=== PATIENT | male | born 1995 | race Caucasian/White ===

== ENCOUNTER 2021-01-10 13:03 | Outpatient (REF) | payer OTHER, SELFPAY ==
[2021-01-10 13:22] LABS: COVID-19 Test Negative (Negative)
== END 2021-01-10 13:04 | disposition home or self-care (01) ==
LOC: HO.LAB 13:03
PROVIDERS: Visit Provider Internal Medicine
DX: Z20.822 Contact with and (suspected) exposure to COVID-19 (principal)
CPT/HCPCS: 36415; 87635; C9803

== ENCOUNTER 2021-01-11 06:00 | Emergency (ER) | payer OTHER, SELFPAY ==
[2021-01-11] VITALS (9 sets, daily range): BP systolic 112–134; BP diastolic 66–80; PULSE 74–145; RESP 17–24; TEMP 36.8–37.2; O2SAT 93–97; BMI 25.8
--- NOTE | ~2021-01-11 | XR_ITS ---
EXAMINATION: XR CHEST CLINICAL INFORMATION: SOB/asthma. COMPARISON: Chest 12/11/2017 TECHNIQUE: Frontal view of the chest was obtained. FINDINGS: No significant abnormality is noted involving the heart, lungs, mediastinum, bony thorax or soft tissues. XR/XR chest 1V IMPRESSION: Unremarkable chest exam.
[2021-01-11] MEDS: Albuterol Sulfate (0.083%) 2.5 MG/3 ML VIAL.NEB INHALE (07:56)
[2021-01-11 08:02] LABS: MANUAL DIFF FLAG NO
[2021-01-11 08:05] LABS: Basophils Percent Auto 0.3 % (0-2); Eosinophils Absolute Auto 0.4 X10*3/uL (0.0-0.4); Hematocrit 44.8 % (42-52); Hemoglobin 15.3 g/dl (14.0-18.0); Imm Gran Abs Auto 0.03 X10*3/uL (0.00-0.03); Imm Gran Pct Auto 0.3 % (0.0-0.4); Lymphocytes Absolute Auto 1.2 X10*3/uL (1.2-4.9); Lymphocytes Percent Auto 12.7 % (20-40); Mean Corpuscular HGB Conc 34.2 g/dl (31.0-36.0); Mean Corpuscular Hemoglobin 30.4 pg (27.0-33.0); Mean Corpuscular Volume 89.1 fL (80-98); Mean Platelet Volume 10.1 fL (9.4-12.4); Monocytes Absolute Auto 0.7 X10*3/uL (0.1-1.2); Monocytes Percent Auto 7.6 % (2-11); Neutrophils Absolute Auto 6.8 X10*3/uL (2.0-8.3); Neutrophils Percent Auto 75.1 % (45-73); Platelet Count 254 X10*3/uL (160-400); Red Blood Count 5.03 X10*6/uL (4.60-5.80); Red Cell Distribution Width 11.6 % (11.0-16.0); White Blood Count 9.1 X10*3/uL (4.8-10.8)
--- NOTE | 2021-01-11 08:11 | ECG_ITS ---
Test Reason : ASTHMA Blood Pressure : / mmHG Vent. Rate : 117 BPM Atrial Rate : 117 BPM P-R Int : 158 ms QRS Dur : 092 ms QT Int : 306 ms P-R-T Axes : 072 083 047 degrees QTc Int : 426 ms Sinus tachycardia Otherwise normal ECG No previous ECGs available Referred By: Catia Nesbitt Electronically Signed By:EDUARDO PAGE
[2021-01-11] MEDS: Magnesium Sulfate/H2O 2 GM/50 ML PIGGYBACK IV (08:20)
[2021-01-11] MEDS: methylPREDNISolone Sod Succ 125 MG/2 ML VIAL IVPUSH (08:21)
[2021-01-11 08:30] LABS: Anion Gap 13 (12-20); Blood Urea Nitrogen 7 mg/dL (9-16); Calcium 9.4 mg/dL (8.4-10.2); Carbon Dioxide 26 mmol/L (22-29); Chloride 104 mmol/L (96-108); Creatinine Clr Calc Pharmacy 137.7; Estimated Glomerular Filt Rate > 60; Glucose Random 114 mg/dL (60-115); Potassium 3.9 mmol/L (3.3-5.1); Sodium 139 mmol/L (135-145)
[2021-01-11 09:21] LABS: Troponin-I High Sensitivity < 3.5 ng/L (<3.5-35.0)
--- NOTE | 2021-01-11 09:38 | ED_ITS ---
HPI - Asthma General Chief Complaint: Asthma Stated Complaint: Asthma Time Seen by Provider: 01/11/21 08:06 Source: patient Mode of arrival: ambulatory History of Present Illness HPI Narrative: 25-year-old male with past medical history of asthma presenting to the ED complaining of asthma exacerbation since last night unrelieved with home nebulizer. Reports a dry cough, SOB, and chest tightness. Denies fever, chills, abdominal pain, nausea/vomiting, LE edema, calf pain, cigarette smoking MD complaint: asthma attack and shortness of breath Related Data Previous Rx's Medication Instructions Recorded albuterol sulfate 90 mcg/actuation 2 puff INHALATION Q6H PRN 30 Days 08/09/20 aerosol inhaler #8.5 g loratadine 5 mg chewable tablet 5 mg PO DAILY PRN 30 Days #30 tab 08/09/20 albuterol sulfate 5 mg INHALATION Q4H PRN #30 ea 01/11/21 prednisone 40 mg PO DAILY 5 Days #10 tab 01/11/21 Allergies Allergy/AdvReac Type Severity Reaction Status Date / Time amoxicillin [AMOXICILLIN] Allergy Unknown HIVES Verified 08/02/20 14:07 Review of Systems Review of Systems: Constitutional: No Fever, No Chills, No Fatigue, No Malaise Cardiovascular: + Chest tightness, + SOB, No Orthopnea, No Edema Respiratory: + Cough, No Sputum, + Wheezing, No Smoke Exposure Gastrointestinal: No Nausea, No Vomiting, No Diarrhea, No Constipation, No Abdominal pain Musculoskeletal: No joint pain, No Myalgias, No Joint Swelling Skin: No Skin Lesions, No rash Neuro: No Weakness, No Numbness Yes all other systems are reviewed and are negative [facility] Past Medical History Attestation statement: The following information was validated with the patient. Medical History (Updated 01/11/21 @ 13:23 by TRAM Srivastava) Asthma Surgical History (Updated 08/02/20 @ 14:07 by TERRIE Garcia) History of appendectomy Family History Family History (Updated 08/02/20 @ 14:08 by TERRIE Garcia) Father No problems noted. Mother No problems noted. Social History Social History Smoked in Last 30 Days: No Use of substances other than those prescribed or required for medical reasons: No Advance Directives: Yes Advance Directives Information Provided: Yes Advance Directives on File: No Physical Exam Vital Signs: Vital Signs: Last Vital Signs Temp 98.7 F 01/11/21 11:31 Pulse 126 H 01/11/21 11:57 Resp 18 01/11/21 11:31 BP 112/68 01/11/21 11:31 Pulse Ox 93 01/11/21 11:31 Body Mass Index 25.8 Const: General: cooperative and healthy appearing Orientation/consciousness: patient oriented x3 Limitations: no limitations HENMT: Head: Yes normal to inspection Ears: hearing grossly normal bilaterally General nose exam: Normal external nose present Face and sinus: Yes normal facial exam Eyes: General: appearance normal, both eyes and all related structures EOM: EOMs intact bilaterally Neck: Neck: Yes normal visual inspection Resp: Effort & Inspection: normal respiratory effort Auscultation: wheezes expiratory wheezes, inspiratory wheezes and throughout Cardio: Rate: regular rate Heart sounds: S1 normal heart sound present and S2 normal heart sound present GI: Inspection: Yes normal to inspection Palpation (GI): Soft to palpation, nontender and Guarding due to palpation present (GI) Skin: Rashes: no rashes Wounds: no wounds Neuro: General: patient oriented x3 Gait exam (Neuro): Normal gait present Extrem: General: Yes normal to inspection, Yes no pedal edema and Yes no calf tenderness Course Course Course Narrative: XR chest 1V IMPRESSION: Unremarkable chest exam. -troponin negative -1005--no leukocytosis. On re-evaluation after 2nd DuoNeb better air movement, however still diffuse expiratory wheezing. Will give short break, give hour long treatment and reassess -labs otherwise unremarkable -1322--on re-evaluation after our long albuterol treatment patient with clear lungs. Reports symptomatic improvement. Worrisome signs and symptoms and strict return precautions discussed. He verbalized understanding feel safe for discharge home to follow-up with PCP MDM - Asthma MDM Narrative Medical decision making narrative: 25-year-old male with past medical history of asthma presenting to the ED complaining of asthma exacerbation since last night unrelieved with home nebulizer. Reports a dry cough, SOB, and chest tightness. On exam initially tachypneic, heart rate 100, diffuse inspiratory/expiratory wheezing, nontoxic appearing. Concern for asthma exacerbation. Rule out pneumonia. Lower concern for PE/ACS. Tested negative for COVID-19 yesterday. Pain: EKG, labs, CXR, Solu-Medrol, magnesium, DuoNeb, re-evaluate Differential Diagnosis Differential diagnosis: Likely Acute exacerbation Medical Records Attestation: I reviewed the patient's medical records. Lab Data Attestation: I reviewed the patient's lab results. Result diagrams: 01/11/21 07:57 01/11/21 07:57 Labs: Lab Results 01/11/21 01/11/21 01/11/21 Range/Units 07:57 07:57 07:57 WBC 9.1 (4.8-10.8) X10*3/uL RBC 5.03 (4.60-5.80) X10*6/uL Hgb 15.3 (14.0-18.0) g/dl Hct 44.8 (42-52) % MCV 89.1 (80-98) fL MCH 30.4 (27.0-33.0) pg MCHC 34.2 (31.0-36.0) g/dl RDW 11.6 (11.0-16.0) % Plt Count 254 (160-400) X10*3/uL MPV 10.1 (9.4-12.4) fL Immature Gran % (Auto) 0.3 (0.0-0.4) % Neut % (Auto) 75.1 H (45-73) % Lymph % (Auto) 12.7 L (20-40) % Mcculloch % (Auto) 7.6 (2-11) % Eos % (Auto) 4.0 (0-4) % Baso % (Auto) 0.3 (0-2) % Lymph # (Auto) 1.2 (1.2-4.9) X10*3/uL Mcculloch # (Auto) 0.7 (0.1-1.2) X10*3/uL Eos # (Auto) 0.4 (0.0-0.4) X10*3/uL Baso # (Auto) 0.0 (0.0-0.2) X10*3/uL Abs Immat Gran (auto) 0.03 (0.00-0.03) X10*3/uL Absolute Neuts (auto) 6.8 (2.0-8.3) X10*3/uL Absolute Nucleated RBC 0.000 (0.0-0.012) X10*3/uL Nucleated RBC % (auto) 0.0 (0.0-0.2) /100WBC Hold Purple Top SEE NOTE Hold Blue Top SEE NOTE Sodium (135-145) mmol/L Potassium (3.3-5.1) mmol/L Chloride (96-108) mmol/L Carbon Dioxide (22-29) mmol/L Anion Gap (12-20) BUN (9-16) mg/dL Creatinine (0.5-1.4) mg/dL Estim Creat Clear Calc Estimated GFR Random Glucose (60-115) mg/dL Calcium (8.4-10.2) mg/dL Troponin I High Sens (<3.5-35.0) ng/L 01/11/21 01/11/21 Range/Units 07:57 07:57 WBC (4.8-10.8) X10*3/uL RBC (4.60-5.80) X10*6/uL Hgb (14.0-18.0) g/dl Hct (42-52) % MCV (80-98) fL MCH (27.0-33.0) pg MCHC (31.0-36.0) g/dl RDW (11.0-16.0) % Plt Count (160-400) X10*3/uL MPV (9.4-12.4) fL Immature Gran % (Auto) (0.0-0.4) % Neut % (Auto) (45-73) % Lymph % (Auto) (20-40) % Mcculloch % (Auto) (2-11) % Eos % (Auto) (0-4) % Baso % (Auto) (0-2) % Lymph # (Auto) (1.2-4.9) X10*3/uL Mcculloch # (Auto) (0.1-1.2) X10*3/uL Eos # (Auto) (0.0-0.4) X10*3/uL Baso # (Auto) (0.0-0.2) X10*3/uL Abs Immat Gran (auto) (0.00-0.03) X10*3/uL Absolute Neuts (auto) (2.0-8.3) X10*3/uL Absolute Nucleated RBC (0.0-0.012) X10*3/uL Nucleated RBC % (auto) (0.0-0.2) /100WBC Hold Purple Top Hold Blue Top Sodium 139 (135-145) mmol/L Potassium 3.9 (3.3-5.1) mmol/L Chloride 104 (96-108) mmol/L Carbon Dioxide 26 (22-29) mmol/L Anion Gap 13 (12-20) BUN 7 L (9-16) mg/dL Creatinine 0.80 (0.5-1.4) mg/dL Estim Creat Clear Calc 137.7 Estimated GFR > 60 Random Glucose 114 (60-115) mg/dL Calcium 9.4 (8.4-10.2) mg/dL Troponin I High Sens < 3.5 (<3.5-35.0) ng/L Discharge Plan Discharge Clinical Impression: Asthma with acute exacerbation Patient Disposition: Home, Self-Care Instructions: Asthma (ED) Additional Instructions: Your blood work and chest x-ray were reassuring today in the ED You are having an asthma exacerbation, you need to use her nebulizer machine at home, refills of the solution were sent to the pharmacy You also need to use your inhalers, in addition take prednisone as prescribed If you develop constant worsening shortness of breath, chest pain, fever, or symptoms persist or worsen return to the ED Follow-up with your doctor Prescriptions: New prednisone 20 mg tablet 40 mg PO DAILY 5 Days Qty: 10 RF: 0 albuterol sulfate 2.5 mg/0.5 mL solution for nebulization 5 mg inhalation Q4H PRN (Reason: shortness of breath or wheezing) Qty: 30 RF: 0 No Action loratadine 5 mg tablet,chewable 5 mg PO DAILY PRN (Reason: Allergy) 30 Days Qty: 30 RF: 0 albuterol sulfate 90 mcg/actuation HFA aerosol inhaler 2 puff inhalation Q6H PRN (Reason: shortness of breath or wheezing) 30 Days Qty: 8.5 RF: 0 Referrals: Physician,Unknown [Primary Care Provider] - 2 days
--- NOTE | 2021-01-11 11:30 | PC.NURSE ---
unlabored. ls slight coarse wheeze. good air movement. skin pwd. st on monitr
[2021-01-11] MEDS: Albuterol Sulfate (0.083%) 2.5 MG/3 ML VIAL.NEB 10 MG INHALE (11:54)
--- NOTE | 2021-01-11 13:50 | PC.NURSE ---
not quite ready for d/c. ambulates without increased work of breathing. sao2 maintains above 95% but pulse is in 140-150's while ambulating. down to 130's at rest. provider aware and will watch patient for a little longer.
== END 2021-01-11 14:27 | disposition home or self-care (01) ==
PROVIDERS: Physician Assistant; Emergency Provider Emergency Medicine Emergency Medical Services
DX: J45.901 Unspecified asthma with (acute) exacerbation (principal); Z79.899 Other long term (current) drug therapy
CPT/HCPCS: 36415; 71045; 80048; 84484; 85025; 93005; 94640; 94645; 96365; 96366; 96375; 99284; 99285; J2930; J3475

== ENCOUNTER 2021-06-21 18:08 | Emergency (ER) | payer OTHER, SELFPAY ==
--- NOTE | 2021-06-21 | ECG_ITS ---
Test Reason : CHEST PAIN Blood Pressure : / mmHG Vent. Rate : 084 BPM Atrial Rate : 084 BPM P-R Int : 152 ms QRS Dur : 088 ms QT Int : 336 ms P-R-T Axes : 061 064 065 degrees QTc Int : 397 ms Normal sinus rhythm with sinus arrhythmia Normal ECG When compared with ECG of 11-JAN-2021 08:51, No significant change was found Referred By: Generic ED Physician Electronically Signed By:JOANA NINO
--- NOTE | ~2021-06-21 | XR_ITS ---
EXAMINATION: XR CHEST CLINICAL INFORMATION: Chest pain COMPARISON: 01/11/2021 TECHNIQUE: Frontal view of the chest was obtained. FINDINGS: No significant abnormality is noted involving the heart, lungs, mediastinum, bony thorax or soft tissues. XR/XR chest 1V IMPRESSION: Unremarkable examination.
[2021-06-21 18:38] VITALS: BP 115/60; PULSE 88; RESP 16; TEMP 36.9; O2SAT 98; BMI 23.6
[2021-06-21 21:05] LABS: MANUAL DIFF FLAG NO
[2021-06-21 21:09] LABS: Basophils Percent Auto 0.3 % (0-2); Eosinophils Absolute Auto 0.1 X10*3/uL (0.0-0.4); Eosinophils Percent Auto 1.9 % (0-4); Hematocrit 42.2 % (42-52); Hemoglobin 14.9 g/dl (14.0-18.0); Imm Gran Abs Auto 0.01 X10*3/uL (0.00-0.03); Imm Gran Pct Auto 0.2 % (0.0-0.4); Lymphocytes Absolute Auto 1.4 X10*3/uL (1.2-4.9); Lymphocytes Percent Auto 24.8 % (20-40); Mean Corpuscular HGB Conc 35.3 g/dl (31.0-36.0); Mean Corpuscular Hemoglobin 31.4 pg (27.0-33.0); Mean Corpuscular Volume 88.8 fL (80-98); Mean Platelet Volume 9.8 fL (9.4-12.4); Monocytes Absolute Auto 0.6 X10*3/uL (0.1-1.2); Monocytes Percent Auto 10.2 % (2-11); Neutrophils Absolute Auto 3.6 X10*3/uL (2.0-8.3); Neutrophils Percent Auto 62.6 % (45-73); Platelet Count 233 X10*3/uL (160-400); Red Blood Count 4.75 X10*6/uL (4.60-5.80); Red Cell Distribution Width 11.7 % (11.0-16.0); White Blood Count 5.8 X10*3/uL (4.8-10.8)
[2021-06-21 21:21] LABS: Anion Gap 12 (12-20); Blood Urea Nitrogen 9 mg/dL (9-16); Calcium 9.3 mg/dL (8.4-10.2); Carbon Dioxide 27 mmol/L (22-29); Chloride 104 mmol/L (96-108); Creatinine Clr Calc Pharmacy 148.8; Estimated Glomerular Filt Rate > 60; Glucose Random 93 mg/dL (60-115); Sodium 139 mmol/L (135-145)
[2021-06-21 21:28] LABS: Troponin-I High Sensitivity < 3.5 ng/L (<3.5-35.0)
--- NOTE | 2021-06-21 22:52 | ED.CHESTPAIN ---
HPI - Chest Pain General Chief Complaint: Chest Pain Stated Complaint: cp Time Seen by Provider: 06/21/21 22:52 Source: patient and family (Mother) Mode of arrival: ambulatory Limitations: no limitations History of Present Illness HPI narrative: 25 years old male came in for evaluation of left-sided chest pain and bilateral arm pain. Patient was driving to work when he suddenly feels squeezing pain in both arms that radiates to left side of the chest, pain started as severe 7/10 then gradually start to improve, nothing relieves the pain, nothing worsening the pain, no other associated symptoms. Never had this pain in the past. Patient has no pain or symptoms now. Patient declined any history of anxiety, no history of drug abuse except smoking marijuana occasionally, no family history of heart disease at young age. No stress in his life currently. Related Data Previous Rx's Medication Instructions Recorded albuterol sulfate 90 mcg/actuation 2 puff INHALATION Q6H PRN 30 Days 08/09/20 aerosol inhaler #8.5 g loratadine 5 mg chewable tablet 5 mg PO DAILY PRN 30 Days #30 tab 08/09/20 albuterol sulfate 2.5 mg/0.5 mL 5 mg INHALATION Q4H PRN #30 ea 01/11/21 solution for nebulization prednisone 20 mg tablet 40 mg PO DAILY 5 Days #10 tab 01/11/21 azithromycin 250 mg tablet See Rx Instructions PO .COMPLEX #6 01/12/21 (Zithromax Z-Sundar) tab Allergies Allergy/AdvReac Type Severity Reaction Status Date / Time amoxicillin [AMOXICILLIN] Allergy Unknown HIVES Verified 08/02/20 14:07 Review of Systems Review of Systems: All other systems are reviewed and are negative Constitutional: Reports as per HPI and Reports no additional constitutional complaints Eyes: Reports as per HPI and Reports no additional eye complaints Reports system reviewed and no additional complaints, except as documented Cardiovascular: Reports as per HPI and Reports no additional cardiovascular complaints Respiratory: Reports as per HPI and Reports no additional respiratory complaints Gastrointestinal: Reports as per HPI and Reports no additional gastrointestinal complaints Genitourinary: Reports no additional female genitourinary complaints Musculoskeletal: Reports no additional musculoskeletal complaints Skin/Breast: Reports system reviewed and no additional complaints, except as docu Psychiatric: Reports no additional psychiatric complaints Endocrine: Reports no additional endocrine complaints Hematologic/Lymphatic: Reports no additional hematologic/lymphatic complaints Allergic/Immunologic: Reports no additional allergic/immunologic complaints Reports system reviewed and no additional complaints, except as documented and Reports Abnormal speech present [facility] Past Medical History Medical History Asthma Surgical History History of appendectomy Family History Family History Father No problems noted. Mother No problems noted. Social History Social History Alcohol intake: never Physical Exam Vital Signs: Vital Signs: Last Vital Signs Temp 98.5 F 06/21/21 18:38 Pulse 88 06/21/21 18:38 Resp 16 06/21/21 18:38 BP 115/60 06/21/21 18:38 Pulse Ox 98 06/21/21 18:38 Body Mass Index 23.6 Vital signs have been reviewed as appeared to be correct. Blood pressure normal. Heart rate normal. Respiration rate normal. Temperature normal. Oxygen saturation normal. Appearance: Alert. Oriented X3. No acute distress. Head: Normal external exam. Normocephalic. Atraumatic. No Rojas signs noted. No raccoon eyes noted Eyes: PERRLA. EOMI. Conjunctiva and sclera normal. Eyelids normal. ENT: TM's Normal. Pharynx normal. Uvula midline. Moist mucous membranes. No trismus noted. No drooling noted. No muffled voice noted. Neck: Normal inspection. Neck supple. FROM. No adenopathy. Thyroid Normal. No meningeal signs. No neck mass noted. CVS: Normal heart rate and rhythm. Heart sound normal. No murmurs noted. Pulses normal throughout. Respiratory: No respiratory distress. Painless inspiration. Breath sounds normal. No wheezes/rales/rhonchi noted. Chest nontender. No accessory muscle usage noted or decreased air movement noted. Abdomen: Soft and nontender. Bowel sounds normal in all 4 quadrants. No distention noted. No organomegaly noted. No visible injury noted. Back: No CVA tenderness. Full range of motion noted. Skin: Skin warm and dry. Normal skin color. Normal skin turgor. No rashes/lesions/lacerations noted. Extremities: No lower extremity edema. Extremities exhibit normal range of motion. Extremities nontender. Neuro: Oriented X 3. Cranial nerve exam: II-XII are grossly intact No motor deficit. No sensory deficit. Reflexes normal. Course Course Course Narrative: Assessment and plan. 25-year-old male came in after having squeezing pain in both arms radiating to the left side of the chest., patient has unremarkable EKG/cardiac enzymes are unremarkable, patient now feels asymptomatic. Will discharge to follow-up with PCP. MDM - Chest Pain Lab Data Attestation: I reviewed the patient's lab results. Result diagrams: 06/21/21 20:59 06/21/21 20:59 Labs: Lab Results 06/21/21 06/21/21 06/21/21 Range/Units 20:59 20:59 20:59 WBC 5.8 (4.8-10.8) X10*3/uL RBC 4.75 (4.60-5.80) X10*6/uL Hgb 14.9 (14.0-18.0) g/dl Hct 42.2 (42-52) % MCV 88.8 (80-98) fL MCH 31.4 (27.0-33.0) pg MCHC 35.3 (31.0-36.0) g/dl RDW 11.7 (11.0-16.0) % Plt Count 233 (160-400) X10*3/uL MPV 9.8 (9.4-12.4) fL Immature Gran % (Auto) 0.2 (0.0-0.4) % Neut % (Auto) 62.6 (45-73) % Lymph % (Auto) 24.8 (20-40) % Porter % (Auto) 10.2 (2-11) % Eos % (Auto) 1.9 (0-4) % Baso % (Auto) 0.3 (0-2) % Lymph # (Auto) 1.4 (1.2-4.9) X10*3/uL Porter # (Auto) 0.6 (0.1-1.2) X10*3/uL Eos # (Auto) 0.1 (0.0-0.4) X10*3/uL Baso # (Auto) 0.0 (0.0-0.2) X10*3/uL Abs Immat Gran (auto) 0.01 (0.00-0.03) X10*3/uL Absolute Neuts (auto) 3.6 (2.0-8.3) X10*3/uL Absolute Nucleated RBC 0.000 (0.0-0.012) X10*3/uL Nucleated RBC % (auto) 0.0 (0.0-0.2) /100WBC Sodium 139 (135-145) mmol/L Potassium 4.0 (3.3-5.1) mmol/L Chloride 104 (96-108) mmol/L Carbon Dioxide 27 (22-29) mmol/L Anion Gap 12 (12-20) BUN 9 (9-16) mg/dL Creatinine 0.79 (0.5-1.4) mg/dL Estim Creat Clear Calc 148.8 Estimated GFR > 60 Random Glucose 93 (60-115) mg/dL Calcium 9.3 (8.4-10.2) mg/dL Troponin I High Sens < 3.5 (<3.5-35.0) ng/L Imaging Data Chest x-ray: Radiologist's impression: Unremarkable examination ECG Data ECG #1: Interpretation: Normal sinus rhythm with sinus arrhythmia, normal axis deviation, normal intervals, no ST-T changes. Discharge Plan Discharge Clinical Impression: Anxiety, Chest pain, non-cardiac Patient Disposition: Home, Self-Care Instructions: Chest Pain (ED) Prescriptions: No Action prednisone 20 mg tablet 40 mg PO DAILY 5 Days Qty: 10 RF: 0 albuterol sulfate 2.5 mg/0.5 mL solution for nebulization 5 mg inhalation Q4H PRN (Reason: shortness of breath or wheezing) Qty: 30 RF: 0 loratadine 5 mg tablet,chewable 5 mg PO DAILY PRN (Reason: Allergy) 30 Days Qty: 30 RF: 0 albuterol sulfate 90 mcg/actuation HFA aerosol inhaler 2 puff inhalation Q6H PRN (Reason: shortness of breath or wheezing) 30 Days Qty: 8.5 RF: 0 azithromycin [Zithromax Z-Sundar] 250 mg tablet See Rx Instructions PO .COMPLEX Qty: 6 RF: 0 Referrals: Po,Eben Gonzales MD [Primary Care Provider] - 2 days Stand Alone Forms: Work/School Release
== END 2021-06-21 23:08 | disposition home or self-care (01) ==
PROVIDERS: Emergency Provider Emergency Medicine; PCP Internal Medicine
DX: R07.89 Other chest pain (principal); F41.1 Generalized anxiety disorder; M79.602 Pain in left arm; M79.601 Pain in right arm; Z79.899 Other long term (current) drug therapy
CPT/HCPCS: 36415; 71045; 80048; 84484; 85025; 93005; 99283

== ENCOUNTER 2021-10-04 10:02 | Outpatient (REF) | payer OTHER, SELFPAY | END 2021-10-04 10:03 | disposition home or self-care (01) | LOC: HO.HMGCLDS 10:02 | PROVIDERS: Visit Provider Internal Medicine | DX: Z20.822 Contact with and (suspected) exposure to COVID-19 (principal) | CPT/HCPCS: U0003; U0005 ==

== ENCOUNTER 2022-09-10 11:02 | Emergency (ER) | payer SELFPAY ==
--- NOTE | ~2022-09-10 | CT_ITS ---
EXAMINATION: CT HEAD WITHOUT CONTRAST CLINICAL INFORMATION: Headache COMPARISON: Head CT May 25, 2018 TECHNIQUE: Contiguous axial imaging was performed from the skull base to vertex without intravenous administration of contrast. This CT examination was performed using dose optimization techniques as appropriate, variously including the following: *Automated exposure control *Adjustment of mA and/or kV according to patient size (this includes techniques or standardized protocols for targeted exams where dose is matched to indication/reason for exam; i.e. extremities or head) *Use of iterative reconstruction technique DLP: 695 mGy-cm FINDINGS: There is no evidence of acute intracranial hemorrhage or territorial infarction. No abnormal mass effect or midline shift is appreciated. Russ-white differentiation is well preserved. No extra-axial fluid collections. The ventricular system and cortical sulci are normal in size. The osseous structures and soft tissues are normal. The visualized paranasal sinuses and mastoid air cells are well aerated. CT/CT head/brain wo IV con IMPRESSION: No acute intracranial pathology.
[2022-09-10 11:05] VITALS: BP 136/58; PULSE 110; RESP 18; TEMP 37.1; O2SAT 100; BMI 25.8
--- NOTE | 2022-09-10 11:05 | ED.HA ---
HPI - Headache General Chief Complaint: General Medical <Tea Ivory NP - Last Filed: 09/10/22 11:09> Stated Complaint: Migraine <Tea Ivory NP - Last Filed: 09/10/22 11:09> Time Seen by Provider: 09/10/22 11:29 <Tea Ivory NP - Last Filed: 09/10/22 11:09> Source: patient <Sadie Penaloza DO - Last Filed: 09/10/22 15:36> Mode of arrival: ambulatory <Sadie Penaloza DO - Last Filed: 09/10/22 15:36> Limitations: no limitations <Sadie Penaloza DO - Last Filed: 09/10/22 15:36> History of Present Illness HPI Narrative: 27 yo male with no sig PMH here with c/o body aches, weakness, fevers, headaches - he was exposed to his kids who just got over the flu. He took motrin at 3am which didn't help. <Sadie Penaloza DO - Last Filed: 09/10/22 15:36> MD elicited complaint: headache <Sadie Penaloza DO - Last Filed: 09/10/22 15:36> Onset (ago): day(s) (started on Saturday) <Sadie Penaloza DO - Last Filed: 09/10/22 15:36> Onset description: gradually <Sadie Penaloza DO - Last Filed: 09/10/22 15:36> Location: diffuse <Sadie Penaloza DO - Last Filed: 09/10/22 15:36> Severity: moderate <Sadie Penaloza DO - Last Filed: 09/10/22 15:36> Quality & Timing: throbbing <Sadie Penaloza DO - Last Filed: 09/10/22 15:36> Exacerbating factors: movement of head/neck and light <Sadie Penaloza DO - Last Filed: 09/10/22 15:36> Relieving factors: rest <Sadie Penaloza DO - Last Filed: 09/10/22 15:36> Context: recent URI <Sadie Penaloza DO - Last Filed: 09/10/22 15:36> Associated symptoms: fever and other (body aches, doens't feel well) <Sadie Penaloza DO - Last Filed: 09/10/22 15:36> Treatments prior to arrival: none <Sadie Penaloza DO - Last Filed: 09/10/22 15:36> Related Data Home Medications: Previous Rx's Medication Instructions Recorded albuterol sulfate 90 mcg/actuation 2 puff inhalation Q6H PRN 08/09/20 aerosol inhaler shortness of breath or wheezing 1 month #8.5 grams loratadine 5 mg chewable tablet 5 mg PO DAILY PRN Allergy 30 days 08/09/20 #30 tabs albuterol sulfate 2.5 mg/0.5 mL 5 mg inhalation Q4H PRN shortness 01/11/21 solution for nebulization of breath or wheezing #30 ea prednisone 20 mg tablet 40 mg PO DAILY 5 days #10 tabs 01/11/21 azithromycin 250 mg tablet See Rx Instructions PO .COMPLEX #6 01/12/21 (Zithromax Z-Sundar) tabs acetaminophen 500 mg tablet 500 mg PO Q4H PRN fever or pain 09/10/22 (Tylenol Extra Strength) #30 tabs ibuprofen 600 mg tablet 600 mg PO Q6H PRN pain #30 tabs 09/10/22 ondansetron 4 mg disintegrating 4 mg PO Q8H PRN nausea and 09/10/22 tablet vomiting #20 tabs <Tea Ivory NP - Last Filed: 09/10/22 11:09> Allergies/Adverse Reactions: Allergies Allergy/AdvReac Type Severity Reaction Status Date / Time amoxicillin [AMOXICILLIN] Allergy Unknown HIVES Verified 09/10/22 11:05 <Tea Ivory NP - Last Filed: 09/10/22 11:09> Review of Systems Review of Systems: Constitutional : pos Fever, pos Chills, No Fatigue ENT/Mouth : No sore throat, No Rhinorrhea Eyes: No Eye Pain, No Swelling, No Redness Cardiovascular : No Chest Pain, No SOB, No Dyspnea on Exertion Respiratory : No Cough, No Sputum Gastrointestinal : No Nausea, No Vomiting, No Diarrhea, No abdominal Pain Genitourinary : No Dysuria, No Urinary Frequency, No Hematuria, Musculoskeletal : No joint pain, No Myalgias, No Joint Swelling Skin : No Skin Lesions, No rash Neuro : No Weakness, No Numbness, No Dizziness, positive Headache Psych : No Anxiety/Panic, No Depression Heme/Lymph: No Bruising, No Bleeding,No Lymphadenopathy Endocrine : No Polyuria, No Polydipsia All other systems reviewed and are negative <Sadie Penaloza DO - Last Filed: 09/10/22 15:36> [facility] Past Medical History Attestation statement: The following information was validated with the patient. <Sadie Penaloza DO - Last Filed: 09/10/22 15:36> Medical History: Medical History Asthma <Tea Ivory NP - Last Filed: 09/10/22 11:09> Surgical History: Surgical History History of appendectomy <Tea Ivory NP - Last Filed: 09/10/22 11:09> Family History Family History: Family History Father No problems noted. Mother No problems noted. <Tea Ivory NP - Last Filed: 09/10/22 11:09> Social History Social History: Social History (Updated 09/10/22 @ 12:08 by Sadie Penaloza DO) Alcohol intake: never Patient Tobacco Use Status: Never used Tobacco Advance Directives: No Advance Directives Information Provided: No <Tea Ivory NP - Last Filed: 09/10/22 11:09> Physical Exam Vital Signs: Vital Signs: Last Vital Signs Temp 100.3 F 09/10/22 14:02 Pulse 99 09/10/22 14:02 Resp 20 09/10/22 14:02 BP 119/70 09/10/22 14:02 Pulse Ox 95 09/10/22 14:02 O2 Del Method 09/10/22 14:02 BMI result Body Mass Index 25.8 <Tea Ivory NP - Last Filed: 09/10/22 11:09> Vital Signs: Last Vital Signs Temp 100.3 F 09/10/22 14:02 Pulse 99 09/10/22 14:02 Resp 20 09/10/22 14:02 BP 119/70 09/10/22 14:02 Pulse Ox 95 09/10/22 14:02 O2 Del Method 09/10/22 14:02 BMI result Body Mass Index 25.8 <Sadie Penaloza DO - Last Filed: 09/10/22 15:36> Appearance: Alert. Oriented X3. No acute distress. Eyes: Pupils equal, round and reactive to light. ENT: Pharynx normal. Neck: Normal inspection. Neck supple. no meningeal signs CVS: Normal heart rate and rhythm. Pulses normal. Respiratory: No respiratory distress. Breath sounds normal. Abdomen: Soft and nontender. Skin: Skin warm and dry. Normal skin color. Normal skin turgor. Extremities: No lower extremity edema. No calf ttp Neuro: Oriented X 3. No motor deficit. No sensory deficit. <Sadie Penaloza DO - Last Filed: 09/10/22 15:36> Course Course Course Narrative: This is a rapid medical exam. Deferred additional HPI, ROS, PE to primary provider. 27 yo male with history of asthma here with complaints of headache, light sensitivity, general weakness/malaise since Saturday. feels he has a migraine. Family had the flu last week. Normal neuro. Will send testing for flu, covid, rsv. VSS. <Tea Ivory NP - Last Filed: 09/10/22 11:09> This is a rapid medical exam. Deferred additional HPI, ROS, PE to primary provider. 27 yo male with history of asthma here with complaints of headache, light sensitivity, general weakness/malaise since Saturday. feels he has a migraine. Family had the flu last week. Normal neuro. Will send testing for flu, covid, rsv. VSS. discussed with partner - kids had fevers but swabbed negative so not the flu, Bill does feel better at this time but still mild headache neg kernig's brudzinskis no meningeal irritation, no recent tick bites <Sadie Penaloza DO - Last Filed: 09/10/22 15:36> Medications Administered Discontinued Medications Generic Name Dose Route Start Last Admin Trade Name Freq PRN Reason Stop Dose Admin Acetaminophen 975 mg 09/10/22 11:45 09/10/22 13:10 Acetaminophen 325 Mg Tablet PO 09/10/22 11:46 975 mg ONCE ONE Administration Ketorolac Tromethamine 30 mg 09/10/22 11:45 09/10/22 13:11 Ketorolac Tromethamine 30 Mg/Ml Vial IM 09/10/22 11:46 30 mg ONCE ONE Administration Ondansetron HCl 4 mg 09/10/22 11:45 09/10/22 13:11 Ondansetron Odt 4 Mg Tab.Rapdis TRANSLINGU 09/10/22 11:46 4 mg ONCE ONE Administration <Tea Ivory COMMUNICATIONS TECHNICIAN - Last Filed: 09/10/22 11:09> Medications Administered Discontinued Medications Generic Name Dose Route Start Last Admin Trade Name Griselda PRN Reason Stop Dose Admin Acetaminophen 975 mg 09/10/22 11:45 09/10/22 13:10 Acetaminophen 325 Mg Tablet PO 09/10/22 11:46 975 mg ONCE ONE Administration Ketorolac Tromethamine 30 mg 09/10/22 11:45 09/10/22 13:11 Ketorolac Tromethamine 30 Mg/Ml Vial IM 09/10/22 11:46 30 mg ONCE ONE Administration Ondansetron HCl 4 mg 09/10/22 11:45 09/10/22 13:11 Ondansetron Odt 4 Mg Tab.Rapdis TRANSLINGU 09/10/22 11:46 4 mg ONCE ONE Administration toradol, tylenol, zofran <Sadie Penaloza DO - Last Filed: 09/10/22 15:36> Medical Decision Making Medical Decision Making [facility] Narrative: 27 yo male no sig PMH here with flu like illness and headaches - states his children just got over the flu - at this time will need viral swab, basic labs and given CT head will obtain imaging for sinusitis/mass if swab is negative. no meningeal signs to suggest meningitis. He has nonfocal neuro exam at this time. Overall not toxic appearing. <Sadie Penaloza DO - Last Filed: 09/10/22 15:36> Differential Diagnosis The differential diagnosis associated with the presentation includes (viral syndrome, migraine, sinusitis) <Sadie Penaloza DO - Last Filed: 09/10/22 15:36> Lab Data [facility] Lab Attestation statement: I reviewed the patient's lab results. <Sadie Penaloza DO - Last Filed: 09/10/22 15:36> Result Diagrams: : 09/10/22 12:13 09/10/22 12:13 <Tea Ivory, COMMUNICATIONS TECHNICIAN - Last Filed: 09/10/22 11:09> Labs: Lab Results 09/10/22 09/10/22 09/10/22 Range/Units 11:13 12:13 12:13 WBC 7.8 (4.8-10.8) X10*3/uL RBC 4.46 L (4.60-5.80) X10*6/uL Hgb 13.5 L (14.0-18.0) g/dl Hct 38.4 L (42.0-52.0) % MCV 86.1 (80.0-98.0) fL MCH 30.3 (27.0-33.0) pg MCHC 35.2 (31.0-36.0) g/dl RDW 11.6 (11.0-16.0) % Plt Count 260 (160-400) X10*3/uL MPV 9.2 L (9.4-12.4) fL Immature Gran % (Auto) 0.1 (0.0-0.4) % Neut % (Auto) 74.3 H (45-73) % Lymph % (Auto) 20.5 (20-40) % [place] % (Auto) 5.0 (2-11) % Eos % (Auto) 0.0 (0-4) % Baso % (Auto) 0.1 (0-2) % Lymph # (Auto) 1.6 (1.2-4.9) X10*3/uL [place] # (Auto) 0.4 (0.1-1.2) X10*3/uL Eos # (Auto) 0.0 (0.0-0.4) X10*3/uL Baso # (Auto) 0.0 (0.0-0.2) X10*3/uL Abs Immat Gran (auto) 0.01 (0.00-0.03) X10*3/uL Absolute Neuts (auto) 5.8 (2.0-8.3) x10*3/uL Absolute Nucleated RBC 0.000 (0.0-0.012) X10*3/uL Nucleated RBC % (auto) 0.0 (0.0-0.2) /100WBC PT 16.0 H (10.0-13.1) SEC INR 1.4 H (0.9-1.1) Sodium (135-145) mmol/L Potassium (3.3-5.1) mmol/L Chloride (96-108) mmol/L Carbon Dioxide (22-29) mmol/L Anion Gap (12-20) BUN (9-16) mg/dL Creatinine (0.5-1.4) mg/dL Estim Creat Clear Calc Estimated GFR Random Glucose (60-115) mg/dL Calcium (8.4-10.2) mg/dL C-Reactive Protein (< or = 0.50) mg/dL Influenza Type A (PCR) NEGATIVE (Negative) Influenza Type B (PCR) NEGATIVE (Negative) RSV RNA Qual (PCR) NEGATIVE (Negative) SARS-CoV-2 RNA (RT-PCR) NEGATIVE (Negative) 09/10/22 Range/Units 12:13 WBC (4.8-10.8) X10*3/uL RBC (4.60-5.80) X10*6/uL Hgb (14.0-18.0) g/dl Hct (42.0-52.0) % MCV (80.0-98.0) fL MCH (27.0-33.0) pg MCHC (31.0-36.0) g/dl RDW (11.0-16.0) % Plt Count (160-400) X10*3/uL MPV (9.4-12.4) fL Immature Gran % (Auto) (0.0-0.4) % Neut % (Auto) (45-73) % Lymph % (Auto) (20-40) % [place] % (Auto) (2-11) % Eos % (Auto) (0-4) % Baso % (Auto) (0-2) % Lymph # (Auto) (1.2-4.9) X10*3/uL [place] # (Auto) (0.1-1.2) X10*3/uL Eos # (Auto) (0.0-0.4) X10*3/uL Baso # (Auto) (0.0-0.2) X10*3/uL Abs Immat Gran (auto) (0.00-0.03) X10*3/uL Absolute Neuts (auto) (2.0-8.3) x10*3/uL Absolute Nucleated RBC (0.0-0.012) X10*3/uL Nucleated RBC % (auto) (0.0-0.2) /100WBC PT (10.0-13.1) SEC INR (0.9-1.1) Sodium 134 L (135-145) mmol/L Potassium 3.8 (3.3-5.1) mmol/L Chloride 101 (96-108) mmol/L Carbon Dioxide 25 (22-29) mmol/L Anion Gap 12 (12-20) BUN 10 (9-16) mg/dL Creatinine 0.83 (0.5-1.4) mg/dL Estim Creat Clear Calc 130.4 Estimated GFR > 60 Random Glucose 112 (60-115) mg/dL Calcium 9.2 (8.4-10.2) mg/dL C-Reactive Protein 0.92 H (< or = 0.50) mg/dL Influenza Type A (PCR) (Negative) Influenza Type B (PCR) (Negative) RSV RNA Qual (PCR) (Negative) SARS-CoV-2 RNA (RT-PCR) (Negative) <Tea Ivory, COMMUNICATIONS TECHNICIAN - Last Filed: 09/10/22 11:09> Lab Results 09/10/22 09/10/22 09/10/22 Range/Units 11:13 12:13 12:13 WBC 7.8 (4.8-10.8) X10*3/uL RBC 4.46 L (4.60-5.80) X10*6/uL Hgb 13.5 L (14.0-18.0) g/dl Hct 38.4 L (42.0-52.0) % MCV 86.1 (80.0-98.0) fL MCH 30.3 (27.0-33.0) pg MCHC 35.2 (31.0-36.0) g/dl RDW 11.6 (11.0-16.0) % Plt Count 260 (160-400) X10*3/uL MPV 9.2 L (9.4-12.4) fL Immature Gran % (Auto) 0.1 (0.0-0.4) % Neut % (Auto) 74.3 H (45-73) % Lymph % (Auto) 20.5 (20-40) % [place] % (Auto) 5.0 (2-11) % Eos % (Auto) 0.0 (0-4) % Baso % (Auto) 0.1 (0-2) % Lymph # (Auto) 1.6 (1.2-4.9) X10*3/uL [place] # (Auto) 0.4 (0.1-1.2) X10*3/uL Eos # (Auto) 0.0 (0.0-0.4) X10*3/uL Baso # (Auto) 0.0 (0.0-0.2) X10*3/uL Abs Immat Gran (auto) 0.01 (0.00-0.03) X10*3/uL Absolute Neuts (auto) 5.8 (2.0-8.3) x10*3/uL Absolute Nucleated RBC 0.000 (0.0-0.012) X10*3/uL Nucleated RBC % (auto) 0.0 (0.0-0.2) /100WBC PT 16.0 H (10.0-13.1) SEC INR 1.4 H (0.9-1.1) Sodium (135-145) mmol/L Potassium (3.3-5.1) mmol/L Chloride (96-108) mmol/L Carbon Dioxide (22-29) mmol/L Anion Gap (12-20) BUN (9-16) mg/dL Creatinine (0.5-1.4) mg/dL Estim Creat Clear Calc Estimated GFR Random Glucose (60-115) mg/dL Calcium (8.4-10.2) mg/dL C-Reactive Protein (< or = 0.50) mg/dL Influenza Type A (PCR) NEGATIVE (Negative) Influenza Type B (PCR) NEGATIVE (Negative) RSV RNA Qual (PCR) NEGATIVE (Negative) SARS-CoV-2 RNA (RT-PCR) NEGATIVE (Negative) 09/10/22 Range/Units 12:13 WBC (4.8-10.8) X10*3/uL RBC (4.60-5.80) X10*6/uL Hgb (14.0-18.0) g/dl Hct (42.0-52.0) % MCV (80.0-98.0) fL MCH (27.0-33.0) pg MCHC (31.0-36.0) g/dl RDW (11.0-16.0) % Plt Count (160-400) X10*3/uL MPV (9.4-12.4) fL Immature Gran % (Auto) (0.0-0.4) % Neut % (Auto) (45-73) % Lymph % (Auto) (20-40) % [place] % (Auto) (2-11) % Eos % (Auto) (0-4) % Baso % (Auto) (0-2) % Lymph # (Auto) (1.2-4.9) X10*3/uL [place] # (Auto) (0.1-1.2) X10*3/uL Eos # (Auto) (0.0-0.4) X10*3/uL Baso # (Auto) (0.0-0.2) X10*3/uL Abs Immat Gran (auto) (0.00-0.03) X10*3/uL Absolute Neuts (auto) (2.0-8.3) x10*3/uL Absolute Nucleated RBC (0.0-0.012) X10*3/uL Nucleated RBC % (auto) (0.0-0.2) /100WBC PT (10.0-13.1) SEC INR (0.9-1.1) Sodium 134 L (135-145) mmol/L Potassium 3.8 (3.3-5.1) mmol/L Chloride 101 (96-108) mmol/L Carbon Dioxide 25 (22-29) mmol/L Anion Gap 12 (12-20) BUN 10 (9-16) mg/dL Creatinine 0.83 (0.5-1.4) mg/dL Estim Creat Clear Calc 130.4 Estimated GFR > 60 Random Glucose 112 (60-115) mg/dL Calcium 9.2 (8.4-10.2) mg/dL C-Reactive Protein 0.92 H (< or = 0.50) mg/dL Influenza Type A (PCR) (Negative) Influenza Type B (PCR) (Negative) RSV RNA Qual (PCR) (Negative) SARS-CoV-2 RNA (RT-PCR) (Negative) <Sadie Penaloza DO - Last Filed: 09/10/22 15:36> Radiology Impression Discussion of test interpretation with radiology: I have reviewed the radiologist's reading. (CT head normal ) <Sadie Penaloza DO - Last Filed: 09/10/22 15:36> Independent Historian Clinical information obtained from an independent historian. History obtained from or confirmed by: Spouse <Sadie Penaloza DO - Last Filed: 09/10/22 15:36> Discharge Plan Discharge Clinical Impression: Acute viral syndrome Fever Qualifiers: Fever type: unspecified Qualified Code(s): R50.9 - Fever, unspecified <Tea Ivory NP - Last Filed: 09/10/22 11:09> Patient Disposition: Home, Self-Care <Tea Ivory NP - Last Filed: 09/10/22 11:09> Instructions: Fever in Adults (ED), Viral Syndrome (ED) <Tea Ivory NP - Last Filed: 09/10/22 11:09> Additional Instructions: please return for neck pain, worsening headaches, vomiting, confusion or any other concerns can take ibuprofen with food every 6 hours and tylenol 650mg every 4 hours - they are cleared from the body differently and can overlap <Tea Ivory NP - Last Filed: 09/10/22 11:09> Prescriptions: New ibuprofen 600 mg tablet 600 mg PO Q6H PRN (Reason: pain) Qty: 30 0RF ondansetron 4 mg tablet,disintegrating 4 mg PO Q8H PRN (Reason: nausea and vomiting) Qty: 20 0RF acetaminophen [Tylenol Extra Strength] 500 mg tablet 500 mg PO Q4H PRN (Reason: fever or pain) Qty: 30 0RF No Action prednisone 20 mg tablet 40 mg PO DAILY 5 Days Qty: 10 0RF albuterol sulfate 2.5 mg/0.5 mL solution for nebulization 5 mg inhalation Q4H PRN (Reason: shortness of breath or wheezing) Qty: 30 0RF loratadine 5 mg tablet,chewable 5 mg PO DAILY PRN (Reason: Allergy) 30 Days Qty: 30 0RF albuterol sulfate 90 mcg/actuation HFA aerosol inhaler 2 puff inhalation Q6H PRN (Reason: shortness of breath or wheezing) 30 Days Qty: 8.5 0RF azithromycin [Zithromax Z-Sundar] 250 mg tablet See Rx Instructions PO .COMPLEX Qty: 6 0RF Rx Instructions: take 500 mg today (day 1), then 250 mg for 4 days (days 2-5) PO <Tea Ivory NP - Last Filed: 09/10/22 11:09> Stand Alone Forms: Work/School Release <Tea Ivory NP - Last Filed: 09/10/22 11:09> Interventions: ED Discharge Assessment Last Done: 09/10/22 15:03 <Tea Ivory NP - Last Filed: 09/10/22 11:09> Discharge Date/Time: 09/10/22 15:04 <Tea Ivory NP - Last Filed: 09/10/22 11:09>
[2022-09-10 11:44] VITALS: BP 120/79; PULSE 116; RESP 20; TEMP 38.4; O2SAT 98
[2022-09-10 12:03] LABS: Influenza A PCR NEGATIVE (Negative); Influenza B PCR NEGATIVE (Negative); Resp Syncy Virus RNA Qual PCR NEGATIVE (Negative); SARS COV2 PCR INHOUSE NEGATIVE (Negative)
[2022-09-10 12:19] LABS: MANUAL DIFF FLAG NO
[2022-09-10 12:21] LABS: Basophils Percent Auto 0.1 % (0-2); Hematocrit 38.4 % (42.0-52.0); Hemoglobin 13.5 g/dl (14.0-18.0); Imm Gran Abs Auto 0.01 X10*3/uL (0.00-0.03); Imm Gran Pct Auto 0.1 % (0.0-0.4); Lymphocytes Absolute Auto 1.6 X10*3/uL (1.2-4.9); Lymphocytes Percent Auto 20.5 % (20-40); Mean Corpuscular HGB Conc 35.2 g/dl (31.0-36.0); Mean Corpuscular Hemoglobin 30.3 pg (27.0-33.0); Mean Corpuscular Volume 86.1 fL (80.0-98.0); Mean Platelet Volume 9.2 fL (9.4-12.4); Monocytes Absolute Auto 0.4 X10*3/uL (0.1-1.2); Neutrophils Absolute Auto 5.8 x10*3/uL (2.0-8.3); Neutrophils Percent Auto 74.3 % (45-73); Platelet Count 260 X10*3/uL (160-400); Red Blood Count 4.46 X10*6/uL (4.60-5.80); Red Cell Distribution Width 11.6 % (11.0-16.0); White Blood Count 7.8 X10*3/uL (4.8-10.8)
[2022-09-10 12:26] LABS: INTERNATIONAL NORM RATIO 1.4 (0.9-1.1)
[2022-09-10 12:34] LABS: Anion Gap 12 (12-20); Blood Urea Nitrogen 10 mg/dL (9-16); C Reactive Protein 0.92 mg/dL (< or = 0.50); Calcium 9.2 mg/dL (8.4-10.2); Carbon Dioxide 25 mmol/L (22-29); Chloride 101 mmol/L (96-108); Creatinine Clr Calc Pharmacy 130.4; Estimated Glomerular Filt Rate > 60; Glucose Random 112 mg/dL (60-115); Potassium 3.8 mmol/L (3.3-5.1); Sodium 134 mmol/L (135-145)
[2022-09-10] MEDS: Acetaminophen 325 MG TABLET 975 MG PO (13:10)
[2022-09-10] MEDS: Ketorolac Tromethamine 30 MG/ML VIAL IM (13:11)
[2022-09-10] MEDS: Ondansetron ODT 4 MG TAB.RAPDIS TRANSLINGU (13:11)
--- NOTE | 2022-09-10 13:14 | PC.NURSE ---
pt. alert and oriented. complains of pain 05/09 gave him zofran, tylenol and toradol IM per providers orders
[2022-09-10 14:02] VITALS: BP 119/70; PULSE 99; RESP 20; TEMP 37.9; O2SAT 95
== END 2022-09-10 15:04 | disposition home or self-care (01) ==
PROVIDERS: Nurse Practitioner Family; Emergency Provider Emergency Medicine; PCP Internal Medicine
DX: B34.9 Viral infection, unspecified (principal); R50.9 Fever, unspecified; Z20.822 Contact with and (suspected) exposure to COVID-19
CPT/HCPCS: 0241U; 36415; 70450; 80048; 85025; 85610; 86140; 96372; 99284; J1885

== ENCOUNTER 2023-03-14 11:41 | Outpatient (REF) | payer OTHER, SELFPAY ==
[2023-03-14 14:04] LABS: Hematocrit 44.6 % (42.0-52.0); Mean Corpuscular HGB Conc 33.6 g/dl (31.0-36.0); Mean Corpuscular Hemoglobin 29.8 pg (27.0-33.0); Mean Corpuscular Volume 88.5 fL (80.0-98.0); Mean Platelet Volume 10.4 fL (9.4-12.4); Platelet Count 257 X10*3/uL (160-400); Red Blood Count 5.04 X10*6/uL (4.60-5.80); Red Cell Distribution Width 11.9 % (11.0-16.0); White Blood Count 5.3 X10*3/uL (4.8-10.8)
[2023-03-14 14:14] LABS: Appearance Urine Clear; Color Urine Yellow; Glucose Urine UA Negative (Negative); Leukocyte Esterase Urine Negative (Negative); Nitrite Urine Negative (Negative); PH 6.5 (5.0-9.0); Specific Gravity - Urine 1.025 (1.005-1.025); Urine Blood Negative (Negative); Urine Ketones Negative (Negative); Urine Protein Negative (Neg-Trace)
[2023-03-14 14:33] LABS: Cholesterol 174 mg/dL; HDL Cholesterol 31 mg/dL; LDL Cholesterol Calculated 120 mg/dl; Triglycerides 115 mg/dL
[2023-03-14 14:43] LABS: TSH reflex Free T4 1.42 uIU/mL (0.32-4.0)
== END 2023-03-14 11:42 | disposition home or self-care (01) ==
LOC: HO.WFDLDS 11:41
PROVIDERS: Visit Provider Nurse Practitioner Family
DX: Z00.00 Encounter for general adult medical examination without abnormal findings (principal)
CPT/HCPCS: 36415; 80061; 81003; 84443; 85027

== ENCOUNTER 2023-10-31 09:58 | Outpatient (REF) | payer OTHER, SELFPAY ==
[2023-10-31 10:53] VITALS: PULSE 78; RESP 16; O2SAT 98
--- NOTE | 2023-10-31 16:47 | PFT_ITS ---
Indication: Asthma Spirometry [FEV1 to FVC 64%; FEV1 3.29 L; FVC 5.14 L. the patient did not have a significant response to bronchodilators noted. To note the FEF 02/16/2075 decreased down to 40% predicted consistent with a history asthma. Maximum voluntary ventilation only 40% predicted.] Lung Volumes [Total lung capacity 102% predicted; residual volume 144% predicted] Diffusion Capacity [DLCO 114% predicted] Comparisons [None] Interpretation [There has an obstructive ventilatory defect consistent with uncontrolled asthma although can not rule out the possibility of a chronic obstructive pulmonary disease. No significant response to bronchodilators noted. The patient does have significant small airways disease. There has also a significant decrease in the maximum voluntary ventilation secondary to deconditioning and also worsening dynamic inspiratory capacity. The patient has significant air trapping due to his obstructive airway disease and has a normal diffusing capacity. Based on the patient's agent abnormal PFTs I do recommend pulmonary consultation.] MTDD
== END 2023-10-31 09:59 | disposition home or self-care (01) ==
LOC: HO.RESP 09:58
PROVIDERS: PCP Nurse Practitioner Family; Visit Provider Nurse Practitioner Family
DX: J45.909 Unspecified asthma, uncomplicated (principal)
CPT/HCPCS: 94010; 94640; 94727; 94729

== ENCOUNTER → 2023-10-31 16:47 | Outpatient (BNV) | payer OTHER, SELFPAY | PROVIDERS: PCP Nurse Practitioner Family; Visit Provider Hospitalist | DX: J45.909 Unspecified asthma, uncomplicated (principal) | CPT/HCPCS: 94060; 94727; 94729 ==

== ENCOUNTER 2023-11-26 09:40 | Outpatient (AMB) | payer OTHER, SELFPAY ==
--- NOTE | 2023-11-26 09:49 | A.OFFVIS_ITS ---
Intake Vital Signs 11/26/23 09:51 Height 5 ft 8 in Weight 170 lb BMI 25.8 BP 100/60 Blood Pressure Location Lt brachial Position Sitting Pulse 67 Pulse Source Pulse Oximeter Pulse Oximetry (%) 99 Oxygen Delivery Method Room Air Intake Visit Reasons: Asthma Allergies amoxicillin [AMOXICILLIN] Allergy (Unknown, Verified 11/26/23 09:53) HIVES HPI HPI Comments History of Present Illness Details The patient is here for pulmonary evaluation. The patient is a 28-year-old gentleman with a known history of lifelong asthma. He has been struggling a little bit more recently. Having sporadic episodes of chest tightness. Moderate severity. He only uses a rescue inhaler. The patient has been working regularly outside. Typically the cold air sometimes bothers his breathing. 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 The patient denies any allergy testing. Does not have any pets. Denies any exposure to mold. He has never had any allergy testing. Does have nasal congestion. Denies any nasal polyps. Denies any significant eczema. He does not smoke cigarettes although sometimes he does smoke marijuana. Denies any other recreational drugs. He did undergo pulmonary function studies recently and I did review that with him. Does appear to have a moderate fixed obstruction consistent with uncontrolled asthma although can not rule out COPD. Does have significant small airways disease. At this point will going to start the patient on a maintenance inhaler Breo. We did teach him use it. He did get a flu shot. Patient will undergo blood work to assess any potential trigger from allergies. When he returns will go ahead and swab him for alpha-1 antitrypsin genotype. [facility] Medical History Asthma Surgical History History of appendectomy Family History Father No problems noted. Mother No problems noted. 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 Cognitive needs: No Hearing needs: No Vision needs: No Review of Systems Const Denies fever(s) Eyes Reports no additional complaints ENT Reports nasal congestion Card Denies chest pain Resp Reports cough and Reports wheezing GI Reports no additional complaints Musc Reports no additional complaints Skin/Breast Denies rash Neuro Reports no additional complaints Duane/Lymph Denies lymphadenopathy Aller/Immun Reports wheezing Physical Exam Vital Signs: Last Vital Signs Pulse 67 11/26/23 09:51 BP 100/60 11/26/23 09:51 Pulse Ox 99 11/26/23 09:51 Oxygen Delivery Method Room Air 11/26/23 09:51 BMI result Body Mass Index 25.8 Const General: comfortable HEENT Head: Yes normocephalic Neck Neck: Yes supple Chest Chest palpation & inspection: normal inspection of the chest Resp Effort & Inspection: normal respiratory effort and prolonged expiratory phase Auscultation: diminished lung sounds Cardio Heart sounds: S1 normal heart sound present and S2 normal heart sound present GI Palpation (GI): Soft to palpation Skin General skin exam: no rashes or lesions noted Extrem General: Yes no clubbing, cyanosis or edema Office Procedures Flu Questionnaire Does the patient have a severe egg allergy?: No Does the patient have severe life threatening allergies?: No Does the patient have a fever or illness today?: No Has the patient ever had Guillain-[place] Syndrome?: No Has the patient ever had any past reaction to a flu shot?: No Immunizations flu vacc [id number] 6mos up(PF) 60 mcg(15 mcgx4)/0.5 mL IM syringe Performing Provider: Crhis Aguila MD Performing Location: [facility] Administered by: Anupama Jeronimo LPN on 11/26/23 10:16 Dose Route Admin Location Dispensed Lot Number Expiration Date [employer] 0.5 mL IM Left Deltoid 0.5 mL [id number] 03/29/24 74594-329-50 [employer] VIS Given Date VIS Provided VIS Publication Date 11/26/23 Single Vaccine 21 Eligibility Eligibility Date Funding Source Not [facility] Eligible 11/26/23 Private Assessment & Plan Assessment & Plan (1) Asthma: Code(s): J45.909 - Unspecified asthma, uncomplicated Qualifiers: Asthma complication type: uncomplicated Asthma persistence: persistent Asthma severity: moderate Qualified Code(s): J45.40 - Moderate persistent asthma, uncomplicated (2) Allergy: Code(s): T78.40XA - Allergy, unspecified, initial encounter Qualifiers: Encounter type: initial encounter Qualified Code(s): T78.40XA - Allergy, unspecified, initial encounter Plan start Breo GERSON as needed Bloodwork/allergy testing Needs alpha 1 testing F/U 3 months Orders: Orders Complete Blood Count Auto Diff Today J45.909 - Unspecified asthma, uncomplicated, T78.40XA - Allergy, unspecified, initial encounter Resp Allergy Profile Region I Today J45.909 - Unspecified asthma, uncomplicated, R91.1 - Solitary pulmonary nodule, T78.40XA - Allergy, unspecified, initial encounter Erythrocyte Sedimentation Rate Today J45.909 - Unspecified asthma, uncomplicated, T78.40XA - Allergy, unspecified, initial encounter Influenza [id number] Immunization Today J45.909 - Unspecified asthma, uncomplicated Medications: New fluticasone furoate-vilanterol 200-25 mcg/dose (Breo Ellipta) 1 inh inhalation DAILY 30 days 60 ea 11RF J45.909 - Unspecified asthma, uncomplicated Refilled montelukast 10 mg PO DAILY 30 days 90 tabs 3RF Coding Level of Care Code New Pt Level 4 (11423) Diagnoses Moderate persistent asthma without complication J45.40 Asthma complication type: uncomplicated Asthma persistence: persistent Asthma severity: moderate Allergy, initial encounter T78.40XA Encounter type: initial encounter Time Spent (min) 35
[2023-11-26 09:51] VITALS: BP 100/60; PULSE 67; O2SAT 99; BMI 25.8
== END 2023-11-26 10:16 | disposition home or self-care (01) ==
PROVIDERS: PCP Nurse Practitioner Family; Visit Provider Hospitalist
DX: Z23 Encounter for immunization (principal); J45.40 Moderate persistent asthma, uncomplicated; T78.40XA Allergy, unspecified, initial encounter
CPT/HCPCS: 99214

== ENCOUNTER → 2023-11-26 09:40 | Outpatient (BNVA) | payer OTHER, SELFPAY | PROVIDERS: PCP Nurse Practitioner Family; Visit Provider Hospitalist | DX: J45.40 Moderate persistent asthma, uncomplicated (principal); T78.40XA Allergy, unspecified, initial encounter; Z23 Encounter for immunization | CPT/HCPCS: 90471; 90686 ==

== ENCOUNTER 2023-12-03 08:56 | Outpatient (AMB) | payer OTHER, SELFPAY ==
[2023-12-03 09:03] VITALS: BP 110/70; PULSE 64; RESP 13; TEMP 36.4; O2SAT 99; BMI 24.1
--- NOTE | 2023-12-03 09:03 | MHC.PC.OV ---
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 Accompanied by: Self / Same As Patient Allergies amoxicillin [AMOXICILLIN] Allergy (Unknown, Verified 12/03/23 09:15) HIVES Medication List - Last Reconciled 12/03/23 by Arcadio Roy CNP albuterol sulfate 2.5 mg (3 mL) inhalation Q4-6H PRN albuterol sulfate 90 mcg/actuation 2 puffs inhalation Q4-6H PRN cetirizine 10 mg PO DAILY fluticasone furoate-vilanterol 200-25 mcg/dose (Breo Ellipta) 1 inh inhalation DAILY 30 days ibuprofen 800 mg PO Q8H PRN magnesium oxide 400 mg PO DAILY 30 days montelukast 10 mg PO DAILY 30 days Tobacco use date assessed: 12/03/23 Dental Screening Dental Screen Date: 12/03/23 Did you have a dental visit in the last 12 months?: Yes Did you have a dental problem in the last 6 months where you did not have access to dental care?: No Was dental information given to patient?: Patient has dentist HPI HPI Comments History of Present Illness Details 28-year-old male presents for asthma follow-up He was evaluated by pulmonology at the end of last month. Breo was added to his treatment regimen. He notes that he has been using Breo and taking montelukast as prescribed with controlled asthma symptoms. He states he has not been required to use his rescue inhaler or nebulizer since starting Breo. He intends to get blood work done today [facility] Medical History Asthma Surgical History History of appendectomy Family History Father No problems noted. Mother No problems noted. 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 Arnel Edward, Ana Cristina Landrum, Mil Hastings and colleagues, with an educational alberto from [employer]. ACT Questionnaire In the past 4 weeks, how much of the time did your asthma keep you from getting as much done at work, school or at home?: None of the time During the past 4 weeks, how often have you had shortness of breath?: 3-6 times a week During the past 4 weeks, how often did your asthma symptoms wake you up at night or earlier than usual in the morning?: 4 or more nights a week During the past 4 weeks, how often have you had to use your rescue inhaler or nebulizer medication?: More than 3 times per day How would you rate your asthma control during the past 4 weeks?: Somewhat controlled ACT Interpretation: Positive Score: 13 Review of Systems Const Details: Const Denies chills, Denies fatigue, Denies fever(s), Denies headache(s) and Denies weakness ENT Denies dizziness and Denies headache(s) Card Denies chest pain, Denies lightheadedness, Denies dyspnea and Denies other (Palpitations) Resp Denies cough, Denies dyspnea, Denies wheezing and Denies other ( shortness of breath) GI Denies abdominal pain, Denies melena, Denies hematochezia, Denies change in bowel habits, Denies dyspepsia and Denies nausea Denies hematuria and Denies dysuria Musc Denies abnormal gait, Denies myalgias, Denies arthralgias, Denies numbness and Denies tingling Skin/Breast Denies rash, Denies unusual bruising and Denies wounds Neuro Denies abnormal gait, Denies dizziness, Denies headache(s), Denies memory loss, Denies numbness, Denies Sensory deficit (Neuro), Denies tingling and Denies weakness Psych Denies anxiety, Denies depression, Denies memory loss Endo Denies cold intolerance, Denies fatigue, Denies heat intolerance, Denies polydipsia and Denies polyuria Aller/Immun Denies wheezing Physical exam (Primary Care) Vital Signs: Last Vital Signs Temp 97.6 F 12/03/23 09:03 Pulse 64 12/03/23 09:03 Resp 13 12/03/23 09:03 BP 110/70 12/03/23 09:03 Pulse Ox 99 12/03/23 09:03 Oxygen Delivery Method Room Air 12/03/23 09:03 BMI result Body Mass Index 24.1 Tobacco/Smoking Status: Tobacco use Status Tobacco use date assessed 12/03/23 12/03/23 09:09 Patient Tobacco Use Status Never used Tobacco 12/03/23 09:09 e-Cigarette/Vaping Use Never Used 12/03/23 09:09 Thrive Assessment: Date of Thrive Assessment Date Thrive assessed 03/14/23 12/03/23 09:09 Const Other: General: no acute distress and well developed Nutritional Appearance: well nourished Orientation/consciousness: patient oriented x3 HENMT Head: Yes normocephalic and Yes atraumatic Eyes General: appearance normal, both eyes and all related structures Pupils: Equal, round and reactive pupils present EOM: EOMs intact bilaterally Resp Effort & Inspection: normal respiratory effort Auscultation: clear to auscultation bilaterally Cardio Rate: regular rate Rhythm: regular rhythm Heart sounds: S1 normal heart sound present, S2 normal heart sound present, no gallops, no murmurs and no rubs GI Palpation (GI): No Abdominal aortic bruit present, Soft to palpation, nontender, No hepatosplenomegaly present and No Rebound tenderness present Auscultation: normal bowel sounds General: Yes no CVA tenderness Back/Spine/Pelvis Back: no CVA tenderness Cervical Spine: cervical ROM normal and No Cervical spine tenderness Thoracic/Lumbar Spine: thoraco-lumbar ROM normal, No pain with thoraco-lumbar ROM, No thoracic spinal tenderness and No lumbar spinal tenderness Extrem General: Yes normal to inspection, No edema and No calf tenderness Skin General: warm and dry. Normal skin color. Normal skin turgor Neuro General: patient oriented x3, gait normal and no focal neuro deficit Cranial nerves: Yes Equal, round and reactive pupils present Cognition (Neuro): normal cognition Gait exam (Neuro): Normal gait present Sensory Exam: No Sensory deficit (Neuro) Psych Appearance: grossly normal Affect: normal affect Attitude: cooperative Thought process: Normal thought process present Assessment and Plan Assessment & Plan (1) Asthma: Code(s): J45.909 - Unspecified asthma, uncomplicated Qualifiers: Asthma severity: moderate Asthma persistence: persistent Asthma complication type: uncomplicated Qualified Code(s): J45.40 - Moderate persistent asthma, uncomplicated Plan: Reports controlled asthma symptoms ACT score is 13 and indicates poorly control asthma Continue current treatment regimen Advised to get blood work done Follow-up with pulmonology as planned Return in 1 month for an extended physical exam or sooner with symptoms or concerns Verbalized understanding and agreed with treatment plan Orders: Orders Comprehensive [place]. Panel Fast Today Z00.00 - Encounter for general adult medical examination without abnormal findings Coding Level of Care Code Est Pt Level 3 (66264) Diagnoses Moderate persistent asthma without complication J45.40 Asthma severity: moderate Asthma persistence: persistent Asthma complication type: uncomplicated
== END 2023-12-03 09:40 | disposition home or self-care (01) ==
PROVIDERS: PCP Nurse Practitioner Family; Visit Provider Nurse Practitioner Family
DX: J45.40 Moderate persistent asthma, uncomplicated (principal)
CPT/HCPCS: 99213

== ENCOUNTER 2023-12-03 09:32 | Outpatient (REF) | payer OTHER, SELFPAY ==
[2023-12-03 11:40] LABS: Basophils Percent Auto 0.5 % (0-2); Eosinophils Absolute Auto 0.1 X10*3/uL (0.0-0.4); Eosinophils Percent Auto 1.4 % (0-4); Hematocrit 43.7 % (42.0-52.0); Hemoglobin 14.9 g/dl (14.0-18.0); Imm Gran Abs Auto 0.01 X10*3/uL (0.00-0.03); Imm Gran Pct Auto 0.2 % (0.0-0.4); Lymphocytes Absolute Auto 1.8 X10*3/uL (1.2-4.9); Lymphocytes Percent Auto 28.6 % (20-40); MANUAL DIFF FLAG NO; Mean Corpuscular HGB Conc 34.1 g/dl (31.0-36.0); Mean Corpuscular Hemoglobin 29.7 pg (27.0-33.0); Mean Corpuscular Volume 87.1 fL (80.0-98.0); Mean Platelet Volume 10.3 fL (9.4-12.4); Monocytes Absolute Auto 0.5 X10*3/uL (0.1-1.2); Neutrophils Percent Auto 62.3 % (45-73); Platelet Count 269 X10*3/uL (160-400); Red Blood Count 5.02 X10*6/uL (4.60-5.80); White Blood Count 6.4 X10*3/uL (4.8-10.8)
[2023-12-03 12:28] LABS: Erythrocyte Sedimentation Rate 6 MM/HR (0-15)
[2023-12-03 13:31] LABS: Alanine Aminotransferase 17 U/L (0-40); Albumin Level 4.4 g/dL (3.5-5.0); Alkaline Phosphatase 64 U/L (39-117); Anion Gap 10 (12-20); Aspartate Amino Transferase 17 U/L (5-37); Bilirubin Total 0.8 mg/dL (0.0-1.0); Blood Urea Nitrogen 10 mg/dL (9-16); Calcium 9.2 mg/dL (8.4-10.2); Carbon Dioxide 30 mmol/L (22-29); Chloride 103 mmol/L (96-108); Estimated Glomerular Filt Rate > 60; Glucose Fasting 100 mg/dL (60-99); Potassium 3.5 mmol/L (3.3-5.1); Sodium 139 mmol/L (135-145)
[2023-12-07 06:34] LABS: Class Alternaria alternata 0; Class Aspergillus fumigatus 0; Class Bermuda Grass 3; Class Birch 5; Class Cat Dander 2; Class Cladosporium herbarum 0; Class Cockroach 2; Class Common Ragweed 4; Class Cottonwood 3; Class Derm. pterony 4; Class Dermatophagoides farinae 4; Class Dog Dander 4; Class Elm 2; Class Maple Box Elder 3; Class Mountain Cedar 0/1; Class Mouse Urine Protein 4; Class Mugwort 2; Class Oak 4; Class Penicillium crysogenum 0; Class Rough Pigweed 1; Class Sheep Sorrel 1; Class Sycamore 2; Class Timothy Grass 5; Class Walnut Tree 2; Class White Ash 1; Class White Mulberry 0/1; E001 - IgE Cat Dander 2.67 kU/L; I006-IgE Cockroach, German 1.67 kU/L; Immunoglobulin E 780 kU/L (<OR=114); M001 IgE Penicillium chrysogen <0.10 kU/L; M002 - IgE Cladosporium herbar <0.10 kU/L; M003 - IgE Aspergillus fumigat <0.10 kU/L; M006 - IgE Alternaria alternat <0.10 kU/L; T006 - IgE Cedar, Mountain 0.22 kU/L; T008 IgE Elm, American 2.23 kU/L; T010 - IgE Walnut 1.08 kU/L; T011 - IgE Maple Leaf Sycamore 0.74 kU/L; T014 - IgE Cottonwood 6.73 kU/L; T015 - IgE Ash, White 0.62 kU/L; T070 - IgE White Mulberry 0.16 kU/L; W006 - IgE Mugwort 1.97 kU/L; W018 IgE Sheep Sorrel 0.49 kU/L
== END 2023-12-03 09:33 | disposition home or self-care (01) ==
LOC: HO.WFDLDS 09:32
PROVIDERS: Referring Provider Hospitalist; Visit Provider Nurse Practitioner Family
DX: Z00.00 Encounter for general adult medical examination without abnormal findings (principal); R91.1 Solitary pulmonary nodule; J45.909 Unspecified asthma, uncomplicated; T78.40XA Allergy, unspecified, initial encounter
CPT/HCPCS: 36415; 80053; 82785; 85025; 85652; 86003

== ENCOUNTER 2024-01-02 11:33 | Outpatient (REF) | payer OTHER, SELFPAY ==
[2024-01-05 12:44] LABS: H Pylori Breath Test Negative (Negative)
== END 2024-01-02 11:34 | disposition home or self-care (01) ==
LOC: HO.LNP 11:33
PROVIDERS: PCP Nurse Practitioner Family; Visit Provider Internal Medicine Gastroenterology
DX: R11.2 Nausea with vomiting, unspecified (principal); R19.7 Diarrhea, unspecified
CPT/HCPCS: 83013

== ENCOUNTER 2024-01-21 08:19 | Outpatient (AMB) | payer OTHER, SELFPAY ==
[2024-01-21 08:25] VITALS: BP 110/66; PULSE 75; RESP 14; TEMP 36.6; O2SAT 99; BMI 24.1
--- NOTE | 2024-01-21 08:25 | A.OFFPC_ITS ---
Vital Signs 01/21/24 08:25 Height 5 ft 8 in Weight 158 lb 4 oz BMI 24.1 BP 110/66 Blood Pressure Location Rt brachial Position Sitting Respiration 14 Pulse 75 Pulse Source Pulse Oximeter Temp 98 F Temp Source Temporal Artery Scan Pulse Oximetry (%) 99 Oxygen Delivery Method Room Air Intake Visit Reasons: cpe Languages And Literature Instructor Required: No Accompanied by: Self / Same As Patient Allergies amoxicillin [AMOXICILLIN] Allergy (Unknown, Verified 01/21/24 08:36) HIVES Medication List - Last Reconciled 01/21/24 by Arcadio Roy CNP albuterol sulfate 2.5 mg (3 mL) inhalation Q4-6H PRN albuterol sulfate 90 mcg/actuation 2 puffs inhalation Q4-6H PRN cetirizine 10 mg PO DAILY fluticasone furoate-vilanterol 200-25 mcg/dose (Breo Ellipta) 1 inh inhalation DAILY 30 days ibuprofen 800 mg PO Q8H PRN montelukast 10 mg PO DAILY 30 days omeprazole 20 mg PO DAILY 30 days Tobacco use date assessed: 01/21/24 Dental Screening Dental Screen Date: 12/03/23 Did you have a dental visit in the last 12 months?: Yes Did you have a dental problem in the last 6 months where you did not have access to dental care?: No HPI HPI Comments History of Present Illness Details 28-year-old male presents for an extende d physical exam He has history of asthma which is well controlled with current treatment He admits to taking his medications as prescribed without adverse reactions He offers no complaints and denies acute symptoms at this time He request a referral for vasectomy He notes that he is not currently active and has no concerns for STD He is up-to-date on the current flu vaccine Does not smoke cigarette, does not drink alcohol, occasionally smokes marijuana FOR[facility]LY [facility], [facility] Medical History Asthma Surgical History History of appendectomy Family History Father No problems noted. Mother No problems noted. 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 1. Little interest or pleasure in doing things: not at all 2. Feeling down, depressed, or hopeless: not at all 3. Trouble falling or staying asleep, or sleeping too much: not at all 4. Feeling tired or having little energy: not at all 5. Poor appetite or overeating: not at all 6. Feeling bad about yourself - or that you are a failure or have let yourself or your family down: not at all 7. Trouble concentrating on things, such as reading the newspaper or watching television: not at all 8. Moving or speaking so slowly that other people could have noticed. Or the opposite - being so fidgety or restless that you have been moving around a lot more than usual: not at all 9. Thoughts that you would be better off or of hurting yourself in some way: not at all Total score: 0 Depression Screening Interpretation: Negative Depression Screening Done: Yes 17016 - PHQ-9 Billing: Yes Source: Developed by Drs. Arnel Edawrd, Ana Cristina Landrum, Mil Hastings and colleagues, with an educational alberto from [email or web address]. Thrive Questionnaire Date Thrive assessed: 01/21/24 I am a: Patient What is your living situation today?: I have a steady place to live Within the past 12 months, did the food you bought not last and you didn't have the money to get more?: Never true Within the past 12 months, did you worry whether your food would run out before you got money to buy more?: Never true Do you have trouble paying for medicines?: No Do you have trouble getting transportation to medical appointments?: No Do you have trouble paying your heating and electricity bill?: No Do you have trouble taking care of your child, family member or friend?: No Do you have trouble with day-to-day activities such as bathing, preparing meals, shopping, managing finances, etc.?: No Are you currently unemployed and looking for a job?: No Are you interested in more education?: No Please select the resources that you would like help with: None THRIVE Score: 0 AUDIT C Alcohol Use Questionnaire (AUDIT-C) 1. How often do you have a drink containing alcohol?: Never 3. How often do you have six or more drinks on one occasion?: Never Total Score: 0 DANIEL-7 AMB Questionnaire DANIEL-7 Date DANIEL - 7 assessed: 01/21/24 Feeling nervous, anxious, or on edge: 0 = Not at all Not being able to stop or control worryin = Not at all Worrying too much about different things: 0 = Not at all Trouble relaxin = Not at all Being so restless that it is hard to sit still: 0 = Not at all Becoming easily annoyed or irritable: 0 = Not at all Feeling afraid as if something awful might happen: 0 = Not at all Total DANIEL-7 score (0-4 normal; 5-9 mild; 10-14 moderate; 15-21 severe): 0 Source: Developed by Drs. Arnel Edward, Ana Cristina Landrum, Mil Hastings and colleagues, with an educational alberto from [email or web address]. DANIEL-7 Assessment Billing DANIEL-7 Assessment Tool: DANIEL-7 Assessment 00956 ACT Questionnaire In the past 4 weeks, how much of the time did your asthma keep you from getting as much done at work, school or at home?: None of the time During the past 4 weeks, how often have you had shortness of breath?: 1-2 times a week During the past 4 weeks, how often did your asthma symptoms wake you up at night or earlier than usual in the morning?: Not at all During the past 4 weeks, how often have you had to use your rescue inhaler or nebulizer medication?: Once a week or less How would you rate your asthma control during the past 4 weeks?: Well controlled ACT Interpretation: Positive Score: 22 Review of Systems Const Details: Denies chills, Denies fatigue, Denies fever(s), Denies headache(s) and Denies weakness HEENT Denies change in vision, Denies dizziness, Denies headache(s), Denies hearing loss, Denies nasal congestion, Denies sinus pain, Denies sinus pressure and Denies sore throat Card Denies chest pain, Denies lightheadedness, Denies dyspnea and Denies other (palpitations) Resp Denies cough, Denies dyspnea and Denies wheezing GI Denies abdominal pain, Denies melena, Denies hematochezia, Denies change in bowel habits, Denies dyspepsia and Denies nausea Denies hematuria and Denies dysuria Musc Denies abnormal gait, Denies myalgias, Denies arthralgias, Denies numbness and Denies tingling Skin/Breast Denies rash, Denies unusual bruising and Denies wounds Neuro Denies abnormal gait, Denies dizziness, Denies headache(s), Denies memory loss, Denies numbness, Denies Sensory deficit (Neuro), Denies tingling and Denies weakness Psych Denies anxiety, Denies depression and Denies memory loss Endo Denies cold intolerance, Denies fatigue, Denies heat intolerance, Denies polydipsia and Denies polyuria Duane/Lymph Denies easy bleeding and Denies easy bruising Aller/Immun Denies wheezing Physical exam (Primary Care) Vital Signs: Last Vital Signs Temp 98 F 01/21/24 08:25 Pulse 75 01/21/24 08:25 Resp 14 01/21/24 08:25 BP 110/66 01/21/24 08:25 Pulse Ox 99 01/21/24 08:25 Oxygen Delivery Method Room Air 01/21/24 08:25 BMI result Body Mass Index 24.1 Tobacco/Smoking Status: Tobacco use Status Tobacco use date assessed 01/21/24 01/21/24 08:29 Patient Tobacco Use Status Never used Tobacco 01/21/24 08:29 e-Cigarette/Vaping Use Never Used 01/21/24 08:29 PHQ-9: PHQ-9 Score PHQ-9: Total score 0 01/21/24 08:32 Depression Screening Interpretation: Negative Thrive Assessment: Date of Thrive Assessment Date Thrive assessed 01/21/24 01/21/24 08:29 Const Other: General: no acute distress, well developed, alert and awake Nutritional Appearance: well nourished Orientation/consciousness: patient oriented x3 HENMT Head: Yes normocephalic and Yes atraumatic Ears: hearing grossly normal bilaterally and TM's normal bilaterally General nose exam: Normal external nose present and Normal nares present Mouth: Normal oral and palatal mucosa present and moist mucous membranes Teeth and gingiva: dentition normal Throat: Yes oropharynx normal Eyes Pupils: Equal, round and reactive pupils present and Pupil accommodation reflex normal EOM: EOMs intact bilaterally Neck Neck: Yes normal visual inspection, Yes no lymphadenopathy and Yes trachea midline Thyroid: Thyroid normal Carotids: no bruits Lymphatic: no lymphadenopathy noted Chest Chest palpation & inspection: normal inspection of the chest Resp Effort & Inspection: normal respiratory effort Auscultation: clear to auscultation bilaterally Cardio Rate: regular rate Rhythm: regular rhythm Heart sounds: S1 normal heart sound present, S2 normal heart sound present, no gallops, no murmurs and no rubs Bruits: no abdominal aortic bruits and no carotid bruits GI Palpation (GI): No Abdominal aortic bruit present, Soft to palpation, nontender, No hepatosplenomegaly present and No Rebound tenderness present Auscultation: normal bowel sounds General: Yes no CVA tenderness Back/Spine/Pelvis Back: no CVA tenderness Cervical Spine: cervical ROM normal and No Cervical spine tenderness Thoracic/Lumbar Spine: thoraco-lumbar ROM normal, No pain with thoraco-lumbar ROM, No thoracic spinal tenderness and No lumbar spinal tenderness Skin General: warm and dry. Normal skin color. Normal skin turgor Lesions: no lesions Rashes: no rashes Trauma: no lacerations or abrasions Wounds: no wounds Nails: normal Neuro General: patient oriented x3, gait normal and CN's II-XI intact bilaterally Cranial nerves: Yes Equal, round and reactive pupils present Cognition (Neuro): normal cognition Gait exam (Neuro): Normal gait present Motor exam (neuro): 5/5 motor strength present throughout Sensory Exam: No Sensory deficit (Neuro) Deep tendon reflexes (DTR's): Right patellar reflex intensity grade: 2+ and Left patellar reflex intensity grade: 2+ Extrem General: Yes normal to inspection, No edema and No calf tenderness Psych Appearance: grossly normal Affect: normal affect Attitude: cooperative Thought process: Normal thought process present Assessment and Plan Assessment & Plan (1) Normal physical examination, routine: Code(s): Z00.00 - Encounter for general adult medical examination without abnormal findings Plan: No significant physical restrictions or limitations noted Recent routine lab results are unremarkable Continue current treatment regimen Healthy diet and routine exercise encouraged Advised to schedule his next physical for year from today Follow-up with symptoms or concerns Verbalized understanding and agreed with treatment plan (2) Vasectomy evaluation: Code(s): Z30.09 - Encounter for other general counseling and advice on contraception Plan: Request referral for vasectomy Referred to Urology (3) Asthma: Code(s): J45.909 - Unspecified asthma, uncomplicated Qualifiers: Asthma severity: moderate Asthma persistence: persistent Asthma complication type: uncomplicated Qualified Code(s): J45.40 - Moderate persistent asthma, uncomplicated Plan: Well-controlled ACT score is 22 Continue to follow-up with pulmonology as planned Return with symptoms or concerns Verbalized understanding and agreed with the plan Orders: Referrals Urology Referral Z30.09 - Encounter for other general counseling and advice on contraception Coding Level of Care Code Est Pt Prev Care 18-39y(86629) Diagnoses Normal physical examination, routine Z00.00 Vasectomy evaluation Z30.09 Moderate persistent asthma without complication J45.40 Asthma severity: moderate Asthma persistence: persistent Asthma complication type: uncomplicated Additional Codes DANIEL-7 Assessment Billing - DANIEL-7 Assessment Tool: DANIEL-7 Assessment 14549 ([id number])
== END 2024-01-21 08:49 | disposition home or self-care (01) ==
PROVIDERS: PCP Nurse Practitioner Family; Visit Provider Nurse Practitioner Family
DX: Z00.00 Encounter for general adult medical examination without abnormal findings (principal); J45.40 Moderate persistent asthma, uncomplicated
CPT/HCPCS: 99395

== ENCOUNTER 2024-01-24 09:04 | Outpatient (AMB) | payer OTHER, SELFPAY ==
--- NOTE | 2024-01-24 09:10 | MHC.OFFVIS ---
Intake Visit Reasons: Vasectomy Consult Intake Note: New Patient presents for initial visit for Vasectomy consult Urology Medications: none Blood Thinner: none Chidren# 2 Expected Children# 0 Operations Technician Required: No Accompanied by: Self / Same As Patient Allergies amoxicillin [AMOXICILLIN] Allergy (Unknown, Verified 01/24/24 09:15) HIVES HPI Comments Details: Bill is a very pleasant 28-year-old male patient of Dr. Roy. He has a past medical history of asthma. He presents to the office today for - vasectomy evaluation Vasectomy evaluation The patient presents for vasectomy consultation.? 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 Patient education has been provided via AUA video, via printed information, risks of failure, recovery time, bruising and potential pain syndrome have been stressed Discussion today focused on the presence of vasectomy and the risks, benefits and alternatives that are available. Vasectomy as intended as a permanent form of control. Printed information and literature was provided to the patient. Overall there is a one in 2500 failure rate. This can occur at any time after vasectomy. Risks were discussed highlighting hematoma, spermatocele, epididymal congestion, development of sperm antibodies, and development of chronic pain estimated between 1-5%. The procedure was reviewed in detail. Anatomical diagrams of the male genitalia were used to explain the location of the vas deferens. The vas deferens will be transected, the proximal end will be cauterized, a metal clip would be applied to separate the 2 vas deferens ends. It was explained the procedure will be done in the office and takes approximately 10-15 minutes. Less common problems that arise with vasectomy include hematoma, bleeding, allergic reaction to anesthetic, epididymal infection, epididymal congestion, scrotal discomfort, spermatic leak, spermatic granuloma and the possibility of antisperm antibodies. He understands these risks and wishes to proceed. Consent was signed at the office today. He also understands that it takes 12 weeks for sperm to fully clear the system. He will need to provide a semen sample at 12 weeks and if this is not clear a 2nd sample at 16 weeks. Medical clearance to stop using protection will only be provided if he satisfies published criteria for sperm clearance. [facility] Medical History Asthma Surgical History History of appendectomy Family History Father No problems noted. Mother No problems noted. 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 Cognitive needs: No Hearing needs: No Vision needs: No Review of Systems Const All systems reviewed & are unremarkable except as noted in HPI and below Physical Exam Const General: cooperative, healthy appearing, comfortable, no acute distress, well developed, alert and awake Orientation/consciousness: patient oriented x3 Limitations: no limitations HEENT Head: Yes normal to inspection, Yes normocephalic and Yes atraumatic Ears: hearing grossly normal bilaterally Eyes General: appearance normal, both eyes and all related structures Neck Neck: Yes normal visual inspection and Yes trachea midline Chest Chest palpation & inspection: normal inspection of the chest Resp Effort & Inspection: normal respiratory effort and able to speak in complete sentences Cardio Rate: regular rate GI Inspection: Yes normal to inspection General: Yes no CVA tenderness Male General Exam: Yes normal external exam Penis: normal penis and uncircumcised Meatus: meatus normal Scrotum: scrotum normal Testes: Testes normal Back/Spine/Pelvis Back: no CVA tenderness Skin General skin exam: no rashes or lesions noted Neuro General: patient oriented x3 Extrem General: Yes normal to inspection Psych Appearance: grossly normal and well kempt Mental Status: mental status grossly normal Speech and movement: Normal speech and movement present and Clear speech present Affect: normal affect Attitude: cooperative Thought process: Normal thought process present Thought content: Normal thought content present Insight: Fair insight present (Psych) Judgement: Fair judgement present (Psych) Results AMB Urinalysis, Automated UA Leukoctes 0 Paulino/uL Last Edit by Nahomi Calvo on 01/24/24 09:25 UA Nitrite Negative Last Edit by Nahomi Calvo on 01/24/24 09:25 UA Urobilinogen 0.2 mg/dL Last Edit by Nahomi Calvo on 01/24/24 09:25 UA Protein 15 mg/dL Last Edit by Nahomi Calvo on 01/24/24 09:25 UA pH 6.0 Last Edit by Nahomi Calvo on 01/24/24 09:25 UA Blood 0 Keanu/uL Last Edit by Nahomi Calvo on 01/24/24 09:25 UA Specific [place] 1.030 Last Edit by Nahomi Calvo on 01/24/24 09:25 UA Ketone Negative Last Edit by Nahomi Calvo on 01/24/24 09:25 UA Bilirubin 1 mg/dL Last Edit by Nahomi Calvo on 01/24/24 09:25 UA Glucose 0 mg/dL Last Edit by Nahomi Calvo on 01/24/24 09:25 Results Reviewed Results Reviewed: Laboratory Last Values Urine pH (Auto) 6.0 01/24/24 09:19 Specific [place] (Auto) 1.030 01/24/24 09:19 Urine Protein (Auto) 15 mg/dL 01/24/24 09:19 Glucose (UA)(Auto) 0 mg/dL 01/24/24 09:19 Urine Ketones (Auto) Negative 01/24/24 09:19 Urine Blood (Auto) 0 Keanu/uL 01/24/24 09:19 Urine Nitrite (Auto) Negative 01/24/24 09:19 Urine Bilirubin (Auto) 1 mg/dL 01/24/24 09:19 Urine Urobilinogen (Auto) 0.2 mg/dL 01/24/24 09:19 Leukocyte Esterase (Auto) 0 Paulino/uL 01/24/24 09:19 Assessment & Plan Assessment & Plan (1) Vasectomy evaluation: Code(s): Z30.09 - Encounter for other general counseling and advice on contraception Category: Medical (2) Anxiety about health: Code(s): R45.89 - Other symptoms and signs involving emotional state Category: Medical Plan Discussed risks and benefits of vasectomy; as noted above. Discussed, educated, and stressed importance of taking medications as prescribed; bringing them to office prior to procedure; prescriptions provided Consent obtained. All questions were answered. Information provided for fellows kit versus in office specimen Will schedule for vasectomy. Follow up per doctors order; or sooner with any issues, concerns, and or questions. Orders: Orders AMB Urinalysis Automated Today Z13.9 - Encounter for screening, unspecified Medications: New diazepam Take medication after arrival at office 2 mg PO BID PRN 2 tabs 0RF anxiety 1 day R45.89 - Other symptoms and signs involving emotional state acetaminophen-codeine 300-30 mg 1 tab PO Q8H 9 tabs 0RF 3 days R45.89 - Other symptoms and signs involving emotional state Patient Instructions: The patient had an opportunity to ask questions regarding the treatment plan. All questions were answered. Physical exam, labs, and imaging were discussed and reviewed in detail. As well as risks, benefits, and discussion of treatment choices. No major barriers to understanding were identified. The patient expressed understanding and agreement with the above treatment plan. The patient was made aware they should contact our office by phone for worsening of their current condition, the appearance of new symptoms, or with any questions or concerns. Compliance is encouraged with any medications and follow up testing that is ordered. It is a privilege to be allowed the opportunity to participate in? your urological care.? Again, if you have any questions or concerns If you have any questions or concerns please do not hesitate to contact me. The office is [phone]. This note is constructed using voice recognition software. While every effort has been made to ensure accuracy rn on site errors may have been included. Yours sincerely, TORIBIO Jay Coding Level of Care Code New Pt Level 4 (63463) Diagnoses Vasectomy evaluation Z30.09 Anxiety about health R45.89
== END 2024-01-24 09:42 | disposition home or self-care (01) ==
PROVIDERS: PCP Nurse Practitioner Family; Visit Provider Nurse Practitioner Family
DX: Z30.09 Encounter for other general counseling and advice on contraception (principal); R45.89 Other symptoms and signs involving emotional state; Z13.9 Encounter for screening, unspecified
CPT/HCPCS: 99204

== ENCOUNTER → 2024-01-24 09:04 | Outpatient (BNVA) | payer OTHER, SELFPAY | PROVIDERS: PCP Nurse Practitioner Family; Visit Provider Nurse Practitioner Family | DX: Z30.09 Encounter for other general counseling and advice on contraception (principal); F41.8 Other specified anxiety disorders | CPT/HCPCS: 81003 ==

== ENCOUNTER 2024-02-06 10:09 | Outpatient (REF) | payer OTHER, SELFPAY ==
[2024-02-07 23:38] LABS: Immunoglobulin E 943 kU/L (<OR=114)
== END 2024-02-06 10:10 | disposition home or self-care (01) ==
LOC: HO.10HDL 10:09
PROVIDERS: Visit Provider Otolaryngology
DX: J30.89 Other allergic rhinitis (principal)
CPT/HCPCS: 36415; 82785; 86003

== ENCOUNTER 2024-02-28 14:46 | Outpatient (AMB) | payer OTHER, SELFPAY ==
--- NOTE | 2024-02-28 15:03 | MHC.OFFVIS ---
Intake Visit Reasons: vasectomy Intake Note: Patient is present for vasectomy Allergies amoxicillin [AMOXICILLIN] Allergy (Unknown, Verified 01/24/24 09:15) HIVES HPI Comments Details: Bill is a very pleasant 28-year-old male patient of Dr. Roy. He has a past medical history of asthma. He presents to the office today for - vasectomy procedure Vasectomy evaluation The patient presents for vasectomy consultation.? 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 Mother No problems noted. 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 Cognitive needs: No Hearing needs: No Vision needs: No Review of Systems Const Denies chills and Denies fever(s) Card Reports no additional complaints and Denies syncope Resp Denies cough GI Denies abdominal pain and Denies heartburn Reports as per HPI and Denies change in libido Neuro Denies syncope Psych Denies change in libido Endo Denies change in libido Physical Exam Const General: cooperative, healthy appearing, comfortable and no acute distress Orientation/consciousness: patient oriented x3 HEENT Face and sinus: Yes normal facial exam Mouth: moist mucous membranes Neck Neck: Yes normal visual inspection, Yes full ROM and Yes trachea midline Chest Chest palpation & inspection: normal inspection of the chest Resp Effort & Inspection: normal respiratory effort, able to speak in complete sentences and no respiratory distress GI Inspection: Yes normal to inspection Back/Spine/Pelvis Cervical Spine: normal cervical lordosis Thoracic/Lumbar Spine: thoracic and lumbar spine normal to inspection Skin General skin exam: no rashes or lesions noted Neuro General: patient oriented x3, gait normal, tone normal and moves all extremities Extrem General: Yes normal to inspection and Yes capillary refill normal Office Procedures Vasectomy Details: Preoperative diagnosis: Anxiety regarding Postoperative diagnosis: Anxiety regarding unplanned Procedure: Bilateral vasectomy Informed consent had been completed. Preoperative and postoperative instructions were provided to the patient. The patient has transportation to home identified at the completion of the procedure. Anti-anxiolytic prescription medication had been taken after consent verification and all questions answered. Tylenol with Codeine pain medication was also provided. The penis was elevated using a rubber band that was attached to the patient's shirt. Both vasa were palpated through the skin using a 3 finger technique and the penoscrotal junction was prepped with Betadine. After Betadine application the left vas was elevated using a 3 finger grasping technique. 1% lidocaine was used to create a subdermal bubble. Further anesthetic was then advanced using the 25-gauge needle along the vasa in a proximal fashion. Approximately 2 minutes were allowed to for local anesthetic uptake. Using the sharp spreading instrument the scrotal skin was spread longitudinally in line with the vasa until the subdermal layer had been divided. The vasa was then elevated from the scrotum using a ring clamp. Care was taken to elevate the superior portion of the vasa by rotating the ring clamp in a caudad direction. The battery powered cautery was used to divide the vasal sheath in a longitudinal direction on the exposed vasa and to strip the vasal sheath from the vasa. A 2nd narrower ring clamp was placed on the exposed vas and used to lift the vas from the vasal sheath. so it grasped the elevated vas. The cautery was used to divide vasal attachments and allow full exposure of a small loop of vasa. The sharp spreading instrument was then used to create a tunnel under the vasa and spread to allow the blood vessels of the vasa to retract from the vasa. A mosquito clamp was placed on the proximal portion of the vas. The battery-powered cautery was used to make a partial division in the proximal vas and then inserted in order to cauterize the proximal end of the vas. This was then cut and allowed to retract into the vasal sheath. The mosquito was then used to twist the vasa 180 degrees creating a fascial interposition. Using a 4-0 chromic suture the fascial interposition was sutured closed. The distal portion of the vas was then cut in order to obtain a segment of vasa. The vasa were allowed to retract back into the scrotum. A small snap was then used to approximate the skin edges and allow hemostasis without placement of a suture. A similar procedure was repeated on the right side. He tolerated the procedure well. Triple antibiotic was applied. A gauze was applied. An ice pack was applied to assist with minimizing swelling. Postoperative instructions were confirmed. He understands the need to continue to use control methods. A semen sample should be brought for inspection under the microscope in 10-12 weeks. CPT 81287 Vasectomy performed by: Lance Brennan Informed consent given: Yes Informed consent signed: Yes Time out checklist: patient, procedure, site marked/identified, positioning of patient, supplies available, allergies confirmed and team agrees on procedure Anesthetic used: other Specimens: vas segments not sent to pathology 98985 - Vasectomy Assessment & Plan Assessment & Plan (1) Anxiety about health: Code(s): R45.89 - Other symptoms and signs involving emotional state Category: Medical Plan Twelve month follow-up Patient Instructions: Imaging studies, laboratory and physical exam results were discussed and reviewed in detail. No major barriers to patient understanding were identified. An opportunity to ask questions regarding the treatment plan was provided. All questions were answered. The patient expressed understanding and agreement with the above treatment plan. The patient is aware they should contact our office by phone for worsening of their current condition or the appearance of new urologic symptoms. Compliance is encouraged with any medications and followup testing that is ordered. It is a privilege to participate in the urologic care of your patient. If you have any questions or concerns regarding treatment for the above conditions, or other urologic issues, please do not hesitate to contact me. The office telephone contact is [phone]. This note is constructed using voice recognition software. While every effort has been made to ensure accuracy cold working inspector errors may have been included. Yours sincerely, Dr Lance Brennan MD, [facility] - Urology Providers of Expert, Compassionate Care for the Genitourinary System Coding Level of Care Code Procedure Only Diagnoses Anxiety about health R45.89 CPT Codes Office Procedure - CPT: 96078 - Vasectomy ([id number])
== END 2024-02-28 15:48 | disposition home or self-care (01) ==
PROVIDERS: PCP Nurse Practitioner Family; Visit Provider Urology
DX: Z30.2 Encounter for sterilization (principal); R45.89 Other symptoms and signs involving emotional state
CPT/HCPCS: 55250

== ENCOUNTER → 2024-02-28 14:46 | Outpatient (BNVA) | payer OTHER, SELFPAY | PROVIDERS: PCP Nurse Practitioner Family; Visit Provider Urology | DX: Z30.2 Encounter for sterilization (principal); F41.8 Other specified anxiety disorders | CPT/HCPCS: 55250 ==

== ENCOUNTER 2024-06-12 10:58 | Outpatient (AMB) | payer OTHER, SELFPAY ==
--- NOTE | 2024-06-12 11:09 | MHC.OFFVIS ---
Intake Visit Reasons: 3m follow up/semen analysis Intake Note: New Patient presents for 3M F/U SEMEN ANALYSIS Urology Medications: none Blood Thinner: none ALLERGIES: AMOXCILLIN Pediatric Assistant Required: No Accompanied by: Self / Same As Patient Allergies amoxicillin [AMOXICILLIN] Allergy (Unknown, Verified 06/12/24 11:11) HIVES HPI Comments Details: Bill is a very pleasant 28-year-old male patient of Dr. Roy. He has a past medical history of asthma. He presents to the office today for - vasectomy procedure No sperm seen on high-power field evaluation Vasectomy evaluation The patient presents for vasectomy consultation.? 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 Mother No problems noted. 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 Cognitive needs: No Hearing needs: No Vision needs: No Review of Systems Const All systems reviewed & are unremarkable except as noted in HPI and below Reports no additional complaints Resp Reports no additional complaints GI Reports no additional complaints Reports as per HPI Musc Reports no additional complaints Physical Exam Telemedicine evaluation Appropriate responses Regular breathing rate and rhythm HEENT Head: Yes normal to inspection Ears: hearing grossly normal bilaterally Eyes General: appearance normal, both eyes and all related structures Neck Neck: Yes normal visual inspection Chest Chest palpation & inspection: normal inspection of the chest Resp Effort & Inspection: normal respiratory effort and able to speak in complete sentences Telehealth Telehealth Location of provider rendering services: practice address Location of patient: address on file Patient Identification confirmed using: Name, : Yes Telehealth method: voice only Patient verbally consented to treatment: Yes Patient verbally consented to billing insurance company: Yes Patient informed of any privacy concerns related to visit: Yes Assessment & Plan Assessment & Plan (1) Anxiety about health: Code(s): R45.89 - Other symptoms and signs involving emotional state Category: Medical Plan P.r.n. follow-up Patient Instructions: Imaging studies, laboratory and physical exam results were discussed and reviewed in detail. No major barriers to patient understanding were identified. An opportunity to ask questions regarding the treatment plan was provided. All questions were answered. The patient expressed understanding and agreement with the above treatment plan. The patient is aware they should contact our office by phone for worsening of their current condition or the appearance of new urologic symptoms. Compliance is encouraged with any medications and followup testing that is ordered. It is a privilege to participate in the urologic care of your patient. If you have any questions or concerns regarding treatment for the above conditions, or other urologic issues, please do not hesitate to contact me. The office telephone contact is [phone]. This note is constructed using voice recognition software. While every effort has been made to ensure accuracy residence life coordinator errors may have been included. Yours sincerely, Dr Lance Brennan MD, [facility] - Urology Providers of Expert, Compassionate Care for the Genitourinary System Coding Level of Care Code Est Pt Level 3 (46112) Diagnoses Anxiety about health R45.89
== END 2024-06-12 11:31 | disposition home or self-care (01) ==
PROVIDERS: PCP Nurse Practitioner Family; Visit Provider Urology
DX: R45.89 Other symptoms and signs involving emotional state (principal)
CPT/HCPCS: 99213

== ENCOUNTER → 2024-06-12 10:58 | Outpatient (BNVA) | payer OTHER, SELFPAY | PROVIDERS: PCP Nurse Practitioner Family; Visit Provider Urology ==

== ENCOUNTER 2025-01-22 08:06 | Outpatient (AMB) | payer OTHER, SELFPAY ==
--- OUTSIDE RECORDS SUMMARY | 2025-01-22 08:09 | XMS_ITS | Encounter Summary ---
Author Organization [facility] Address [address] [place] [address] Phone Care Team Providers Care Advance Agent Name Role Phone Tanvir Ventura MD Primary Care Provider [phone] Encounter Details Date Type Department Care Team (Late st Contact Info) Description 11/06/[address] [facility] [place] Family Medicine [address] [place] [address] Family Medicine, Physician [address] [place], [place] [phone] Social History Tobacco Use Types Packs/Day Years Used Date Smoking Tobacco: Never Assessed Sex and Gender Information Value Date Recorded Sex Assigned at Not on file Legal Sex Male 4:55 PM EDT Gender Identity Not on file Sexual Orientation Not on file documented as of this encounter Plan of Treatment Not on file documented as of this encounter Visit Diagnoses Not on filedocumented in this encounter Care Teams Advance Agent Relationship Specialty Start Date End Date Tanvir Ventura MD [address] [facility] [place] [address] PCP - General 05/10/17 03/06/23 documented as of this encounter
--- OUTSIDE RECORDS SUMMARY | 2025-01-22 08:09 | XMS_ITS | Encounter Summary ---
Author Organization [facility] Address [address] [place] [address] Phone Care Team Providers Care Preventive Medicine Officer Name Role Phone Tanvir Ventura MD Primary Care Provider [phone] Encounter Details Date Type Department Care Team (Late st Contact Info) Description 06/05/2013 [place] [facility] [place] [address] [place] [address] Family Medicine, Physician [address] [place], [place] [phone] Social History Tobacco Use Types Packs/Day Years [...] on filedocumented in this encounter Care Teams Preventive Medicine Officer Relationship Specialty Start Date End Date Tanvir Ventura MD [address] [facility] [place] [address] PCP - General 05/10/17 03/06/23 documented as of this encounter
--- OUTSIDE RECORDS SUMMARY | 2025-01-22 08:09 | XMS_ITS | Encounter Summary ---
Author Organization [facility] Address [address] [place] [address] Phone Care Team Providers Care Billposter Name Role Phone Tanvir Ventura MD Primary Care Provider [phone] Encounter Details Date Type Department Care Team (Late st Contact Info) Description 05/30/2012 [place]ation [facility] [place] [address] [place] [address] Family Medicine, Physician [address] [place], [place] [phone] Social History Tobacco Use Types Packs/Day Years [...] on filedocumented in this encounter Care Teams Billposter Relationship Specialty Start Date End Date Tanvir Ventura MD [address] [facility] [place] [address] PCP - General 05/10/17 03/06/23 documented as of this encounter
--- OUTSIDE RECORDS SUMMARY | 2025-01-22 08:09 | XMS_ITS | Encounter Summary ---
Author Organization [facility] Address [address] [place] [address] Phone Care Team Providers Care Control Clerk Auditing Name Role Phone Tanvir Ventura MD Primary Care Provider [phone] Encounter Details Date Type Department Care Team (Late st Contact Info) Description 02/19/2013 Documentation [facility] [place] Family Medicine [address] [place] [address] Family Medicine, Physician [address] [place], [place] [phone] Social History Tobacco Use Types Packs/Day Years [...] on filedocumented in this encounter Care Teams Control Clerk Auditing Relationship Specialty Start Date End Date Tanvir Ventura MD [address] [place] [address] PCP - General 05/10/17 03/06/23 documented as of this encounter
--- OUTSIDE RECORDS SUMMARY | 2025-01-22 08:09 | XMS_ITS | Encounter Summary ---
Author Organization [facility] Address [address] [place] [address] Phone Care Team Providers Care Director Of Curriculum And Instruction Name Role Phone Tanvir Ventura MD Primary Care Provider [phone] Encounter Details Date Type Department Care Team (Late st Contact Info) Description 10/29/2014 Documentation [facility] [place] Family Medicine [address] [place] [address] Family Medicine, Physician [address] [place], [place] [phone] Social History Tobacco Use Types Packs/Day Years Used Date Smoking Tobacco: Never Comments:Never smoker Sex and Gender Information Value Date Recorded Sex Assigned at Not on file Legal Sex Male 4:55 PM EDT Gender Identity Not on file Sexual Orientation Not on file documented as of this encounter Plan of Treatment Not on file documented as of this encounter Visit Diagnoses Not on filedocumented in this encounter Care Teams Director Of Curriculum And Instruction Relationship Specialty Start Date End Date Tanvir Ventura MD [address] [place] [address] PCP - General 05/10/17 03/06/23 documented as of this encounter
--- OUTSIDE RECORDS SUMMARY | 2025-01-22 08:09 | XMS_ITS | Encounter Summary ---
Author Organization [facility] Address [address] [place] [address] Phone Care Team Providers Care Benzene Worker Name Role Phone Tanvir Ventura MD Primary Care Provider [phone] Encounter Details Date Type Department Care Team (Late st Contact Info) Description 01/05/2014 Documentation [facility] [place] [address] [place] [address] Family Medicine, Physician [address] [place], [place] [phone] Social History Tobacco Use Types Packs/Day Years [...] on filedocumented in this encounter Care Teams Benzene Worker Relationship Specialty Start Date End Date Tanvir Ventura MD [address] [facility] [place] [address] PCP - General 05/10/17 03/06/23 documented as of this encounter
--- OUTSIDE RECORDS SUMMARY | 2025-01-22 08:09 | XMS_ITS | Encounter Summary ---
Author Organization [facility] Address [address] [place] [address] Phone Care Team Providers Care Marble Carver Name Role Phone Tanvir Ventura MD Primary Care Provider [phone] Encounter Details Date Type Department Care Team (Late st Contact Info) Description 06/05/2013 Documentation [facility] [place] Family Medicine [address] [place] [address] Family Medicine, Physician [address] [place], [place] [phone] Social History Tobacco Use Types Packs/Day Years [...] on filedocumented in this encounter Care Teams Marble Carver Relationship Specialty Start Date End Date Tanvir Ventura MD [address] [place] [address] PCP - General 05/10/17 03/06/23 documented as of this encounter
--- OUTSIDE RECORDS SUMMARY | 2025-01-22 08:09 | XMS_ITS | Encounter Summary ---
Author Organization [facility] Address [address] [place] [address] Phone Care Team Providers Care Hoop Driving Machine Operator Helper Name Role Phone Tanvir Ventura MD Primary Care Provider [phone] Encounter Details Date Type Department Care Team (Late st Contact Info) Description 06/04/2013 Documentation [place] Family Medicine [address] [place] [address] Family Medicine, Physician [address] [place], [place] [phone] Social History Tobacco Use Types Packs/Day Years [...] on filedocumented in this encounter Care Teams Hoop Driving Machine Operator Helper Relationship Specialty Start Date End Date Tanvir Ventura MD [address] [facility] [address] PCP - General 05/10/17 03/06/23 documented as of this encounter
--- OUTSIDE RECORDS SUMMARY | 2025-01-22 08:09 | XMS_ITS | Encounter Summary ---
Author Organization [facility] Address [address] [place] [address] Phone Care Team Providers Care Senior Research Analyst Name Role Phone Tanvir Ventura MD Primary Care Provider [phone] Encounter Details Date Type Department Care Team (Late st Contact Info) Description 05/30/2012 Documentation [facility] [place] [address] [place] [address] Family Medicine, Physician [address] [place], [place] [phone] Social History Tobacco Use Types Packs/Day Years [...] on filedocumented in this encounter Care Teams Senior Research Analyst Relationship Specialty Start Date End Date Tanvir Ventura MD [address] [facility] [place] [address] PCP - General 05/10/17 03/06/23 documented as of this encounter
--- OUTSIDE RECORDS SUMMARY | 2025-01-22 08:09 | XMS_ITS | Encounter Summary ---
Author Organization [facility] Address [address] [place] [address] Phone Care Team Providers Care Type Proof Reproducer Name Role Phone Tanvir Ventura MD Primary Care Provider [phone] Encounter Details Date Type Department Care Team (Late st Contact Info) Description 05/30/2011 Documentation [facility] [place] [address] [place] [address] Family Medicine, Physician [address] [place], [place] [phone] Social History Tobacco Use Types Packs/Day Years [...] on filedocumented in this encounter Care Teams Type Proof Reproducer Relationship Specialty Start Date End Date Tanvir Ventura MD [address] [facility] [place] [address] PCP - General 05/10/17 03/06/23 documented as of this encounter
--- OUTSIDE RECORDS SUMMARY | 2025-01-22 08:09 | XMS_ITS | Encounter Summary ---
Author Organization [facility] Address [address] [place] [address] Phone Care Team Providers Care Speech Instructor Name Role Phone Tanvir Ventura MD Primary Care Provider [phone] Encounter Details Date Type Department Care Team (Late st Contact Info) Description 05/16/2017 Conversion Encounter [facility] [place] [address] [place] [address] Social History Tobacco Use Types Packs/Day Years [...] on filedocumented in this encounter Care Teams Speech Instructor Relationship Specialty Start Date End Date Tanvir Ventura MD [address] [place] [address] PCP - General 05/10/17 03/06/23 documented as of this encounter
--- OUTSIDE RECORDS SUMMARY | 2025-01-22 08:09 | XMS_ITS | Clinical Summary ---
Author Organization [facility] Address [address] [place] [id number] Phone Care Team Providers Care Pediatric Oncology Nurse Name Role Phone Unavailable Primary Care Provider Unavailabl e Immunizations Immunization Administration Dates Next Due DTP 07/05/1998, 7,1996,10/07 DTaP 5 07/14/2001 H1N1 12/14/2009 HPV, Quadrivalent 10/28/2014 Hep A, ped/adol 11/05/2013,05/29/2011 Hep B, ped/adol 02/15/1997,1996,1996 Hib (PRP-T) 11/02/1997, 7,1996,10/07 IPV 07/14/2001 Influenza Split 05/29/2012,05/29/2011,07/05/1998 Influenza, injectable, quadrivalent 10/28/2014 Influenza, injectable, quadr ivalent, preservative free 11/05/2013 Influenza, injectable, trivalent 09/09/2007,02/1998 MMR 07/14/2001,11/02/1997 Meningococcal Conj (Menactra) MCV4P 03/22/2009 OPV 02/15/1997,1996,1996 Tdap 03/22/2009 Varicella 02/16/2008,07/05/1998 Family History Relation Name Status Comments Brother 1 Alive Brother: Asthma , Alive and well, Alive and well Brother 2 Alive Brother: Asthma , Alive and well, Alive and well Father Alive Father: Alive a nd well Mother Mother: Asthma, Allergies, Migraines Other No family histo ry of Obesity, No family history of Developmental dislocation of hip, No family history of Diabetes mellitus, No family history of CVA (Stroke), No family history of Deafness, No family history of Hyperlipidemia, No family history of Heart disease, No family history of Seizure disorder, No family history of Cancer, No family history of Sudden /[place] under age 55, No family history of ADD/ADHD, No family history of Strabismus Social History Tobacco Use Types Packs/Day Years Used Date Smoking Tobacco: Never Comments:Never smoker Sex and Gender Information Value Date Recorded Sex Assigned at Not on file Legal Sex Male 4:55 PM EDT Gender Identity Not on file Sexual Orientation Not on file Last Filed Vital Signs Vital Sign Reading Time Taken Comments Blood Pressure 112/75 10/28/2014 12:00 AM EST Pulse 64 10/28/2014 12:00 AM EST Temperature 36.1 ??C (96.9 ??F) 01/04/2014 12:00 AM E DT Respiratory Rate - - Oxygen Saturation 99% 12/22/2013 12:00 AM EDT Inhaled Oxygen Concentration - - Weight 60.4 kg (133 lb 3.2 oz) 10/28/2014 12:00 AM EST Height 172 cm (5' 7.7 ) 10/28/2014 12:00 AM EST Body Mass Index 20.43 10/28/2014 12:00 AM EST Plan of Treatment Health Maintenance Due Date Last Done Comments HPV Vaccines (2 - Male 3-dose series) 11/25/2014 10/28/2014 DTaP,Tdap,and Td Vaccines (7 - Td or Tdap) 03/22/2019 03/22/2009, 07/14/2001, 07/05/1998, Additional history exists Influenza Vaccines (#1) 2024 10/28/19 15, 11/05/2013, 05/29/2012, Additional history exists COVID-19 Vaccine ( season) 2024 Hepatitis B Vaccines Completed 02/15/1997, 1996, 1996 HIB Vaccines Completed 11/02/1997, 01/28, 1996, Additional history exists IPV Vaccines Completed 07/14/2001, 01/28, 1996, Additional history exists MMR Vaccines Completed 07/14/2001, 11/02/1997 Varicella Vaccines Completed 02/16/2008, 07/05/1998 Meningococcal Vaccine Aged Out 03/22/2009 No brando kirstie eligible based on patient's age to complete this topic Hepatitis A Vaccines Completed 11/05/2013, 05/29/20 11 Men B Vaccine Aged Out No longer elig ible based on patient's age to complete this topic Pneumococcal Vaccine Aged Out No long er eligible based on patient's age to complete this topic
--- OUTSIDE RECORDS SUMMARY | 2025-01-22 08:09 | XMS_ITS | Encounter Summary ---
Author Organization [facility] Address [address] [place] [address] Phone Care Team Providers Care General Car Yard Supervisor Name Role Phone Tanvir Ventura MD Primary Care Provider [phone] Encounter Details Date Type Department Care Team (Late st Contact Info) Description 05/30/2011 Documentation [facility] [place] Family Medicine [address] [place] [address] Family Medicine, Physician [address] [place], [place] [phone] Social History Tobacco Use Types Packs/Day Years [...] on filedocumented in this encounter Care Teams General Car Yard Supervisor Relationship Specialty Start Date End Date Tanvir Ventura MD [address] [place] [address] PCP - General 05/10/17 03/06/23 documented as of this encounter
--- OUTSIDE RECORDS SUMMARY | 2025-01-22 08:09 | XMS_ITS | Encounter Summary ---
Author Organization [facility] Address [address] [place] [address] Phone Care Team Providers Care Network Security Consultant Name Role Phone Tanvir Ventura MD Primary Care Provider [phone] Encounter Details Date Type Department Care Team (Late st Contact Info) Description 12/03/2012 Documentation [facility] [place] Family Medicine [address] [place] [address] Family Medicine, Physician [address] [place], [place] [phone] Social History Tobacco Use Types Packs/Day Years [...] on filedocumented in this encounter Care Teams Network Security Consultant Relationship Specialty Start Date End Date Tanvir Ventura MD [address] [facility] [place] [address] PCP - General 05/10/17 03/06/23 documented as of this encounter
--- OUTSIDE RECORDS SUMMARY | 2025-01-22 08:09 | XMS_ITS | Encounter Summary ---
Author Organization [facility] Address [address] [place] [address] Phone Care Team Providers Care Refrigeration Plant Cork Insulator Name Role Phone Tanvir Ventura MD Primary Care Provider [phone] Encounter Details Date Type Department Care Team (Late st Contact Info) Description 10/29/2014 Documentation [facility] [place] [address] [place] [address] Family Medicine, Physician [address] [place], [place] [phone] Social History Tobacco Use Types Packs/Day Years [...] on filedocumented in this encounter Care Teams Refrigeration Plant Cork Insulator Relationship Specialty Start Date End Date Tanvir Ventura MD [address] [facility] [address] PCP - General 05/10/17 03/06/23 documented as of this encounter
--- OUTSIDE RECORDS SUMMARY | 2025-01-22 08:09 | XMS_ITS | Encounter Summary ---
Author Organization [facility] Address [address] [place] [address] Phone Care Team Providers Care Mangle Roll Operator Name Role Phone Tanvir Ventura MD Primary Care Provider [phone] Encounter Details Date Type Department Care Team (Late st Contact Info) Description 11/25/2012 [place] [facility] [place] [address] [place] [address] Family Medicine, Physician [address] [place], [place] [phone] Social History Tobacco Use Types Packs/Day Years [...] on filedocumented in this encounter Care Teams Mangle Roll Operator Relationship Specialty Start Date End Date Tanvir Ventura MD [address] [facility] [place] [address] PCP - General 05/10/17 03/06/23 documented as of this encounter
--- OUTSIDE RECORDS SUMMARY | 2025-01-22 08:09 | XMS_ITS | Encounter Summary ---
Author Organization [facility] Address [address] [place] [address] Phone Care Team Providers Care Rug Scratcher Name Role Phone Tanvir Ventura MD Primary Care Provider [phone] Encounter Details Date Type Department Care Team (Late st Contact Info) Description 05/30/2011 [place]ation [facility] [place] [address] [place] [address] Family Medicine, Physician [address] [place], [place] [phone] Social History Tobacco Use Types Packs/Day Years [...] on filedocumented in this encounter Care Teams Rug Scratcher Relationship Specialty Start Date End Date Tanvir Ventura MD [address] [facility] [place] [address] PCP - General 05/10/17 03/06/23 documented as of this encounter
--- OUTSIDE RECORDS SUMMARY | 2025-01-22 08:09 | XMS_ITS | Encounter Summary ---
Author Organization [facility] Address [address] [place] [address] Phone Care Team Providers Care Hims Coder Name Role Phone Tanvir Ventura MD Primary Care Provider [phone] Encounter Details Date Type Department Care Team (Late st Contact Info) Description 10/29/2014 Documentation [facility] [place] Family Medicine [address] [place] [address] Family Medicine, Physician [address] [place], [place] [phone] Social History Tobacco Use Types Packs/Day Years [...] on filedocumented in this encounter Care Teams Hims Coder Relationship Specialty Start Date End Date Tanvir Ventura MD [address] [facility] [place] [address] PCP - General 05/10/17 03/06/23 documented as of this encounter
--- OUTSIDE RECORDS SUMMARY | 2025-01-22 08:09 | XMS_ITS | Encounter Summary ---
Author Organization [facility] Address [address] [place] [address] Phone Care Team Providers Care Table Games Shift Manager Name Role Phone Tanvir Ventura MD Primary Care Provider [phone] Encounter Details Date Type Department Care Team (Late st Contact Info) Description 05/30/2011 [place]ation [facility] [place] [address] [place] [address] Family Medicine, Physician [address] [place], [place] [phone] Social History Tobacco Use Types Packs/Day Years [...] on filedocumented in this encounter Care Teams Table Games Shift Manager Relationship Specialty Start Date End Date Tanvir Ventura MD [address] [facility] [place] [address] PCP - General 05/10/17 03/06/23 documented as of this encounter
--- OUTSIDE RECORDS SUMMARY | 2025-01-22 08:09 | XMS_ITS | Encounter Summary ---
Author Organization [facility] Address [address] [place] [address] Phone Care Team Providers Care Business Specialist Name Role Phone Tanvir Ventura MD Primary Care Provider [phone] Encounter Details Date Type Department Care Team (Late st Contact Info) Description 06/10/[address] [facility] [place] [address] [place] [address] Family Medicine, Physician [address] [place], [place] [phone] Social History Tobacco Use Types Packs/Day Years [...] on filedocumented in this encounter Care Teams Business Specialist Relationship Specialty Start Date End Date Tanvir Ventura MD [address] [facility] [place] [address] PCP - General 05/10/17 03/06/23 documented as of this encounter
--- OUTSIDE RECORDS SUMMARY | 2025-01-22 08:09 | XMS_ITS | Encounter Summary ---
Author Organization [facility] Address [address] [place] [address] Phone Care Team Providers Care Ocean Lifeguard Name Role Phone Tanvir Ventura MD Primary Care Provider Encounter Details Date Type Department Care Team (Late st Contact Info) Description 06/10/2012 Documentation [facility] [place] Family Medicine [address] [place] [address] Family Medicine, Physician [address] [place], [place] [phone] Social History Tobacco Use Types Packs/Day Years [...] on filedocumented in this encounter Care Teams Ocean Lifeguard Relationship Specialty Start Date End Date Tanvir Ventura MD [address] [facility] [place] [address] PCP - General 05/10/17 03/06/23 documented as of this encounter
--- OUTSIDE RECORDS SUMMARY | 2025-01-22 08:09 | XMS_ITS | Encounter Summary ---
Author Organization [facility] Address [address] [place] [address] Phone Care Team Providers Care Textile Stylist Name Role Phone Tanvir Ventura MD Primary Care Provider [phone] Encounter Details Date Type Department Care Team (Late st Contact Info) Description 10/29/2014 Documentation [facility] [place] Family Medicine [address] [place] [address] Family Medicine, Physician [address] [place], [place] [phone] Social History Tobacco Use Types Packs/Day Years [...] on filedocumented in this encounter Care Teams Textile Stylist Relationship Specialty Start Date End Date Tanvir Ventura MD [address] [facility] [place] [address] PCP - General 05/10/17 03/06/23 documented as of this encounter
--- NOTE | 2025-01-22 08:13 | MHC.PC.OV ---
Vital Signs 01/22/25 08:17 Height 5 ft 8 in Weight 163 lb 4 oz BMI 24.8 BP 114/72 Blood Pressure Location Rt brachial Position Sitting Respiration 16 Pulse 76 Pulse Source Pulse Oximeter Temp 97.4 F Temp Source Oral Pulse Oximetry (%) 97 Oxygen Delivery Method Room Air Intake Visit Reasons: cpe Intake Note: patient here for CPE Medical Sales Consultant Required: No Allergies amoxicillin [AMOXICILLIN] Allergy (Unknown, Verified 01/22/25 08:23) HIVES Medication List - Last Reconciled 01/22/25 by Arcadio Roy CNP acetaminophen-codeine 300-30 mg 1 tab PO Q8H 3 days albuterol sulfate 2.5 mg (3 mL) inhalation Q4-6H PRN albuterol sulfate 90 mcg/actuation 2 puffs inhalation Q4-6H PRN diazepam 2 mg PO BID PRN 1 day fluticasone furoate-vilanterol 200-25 mcg/dose (Breo Ellipta) 1 inh inhalation DAILY 30 days Tobacco use date assessed: 01/22/25 Dental Screening Dental Screen Date: 01/22/25 Did you have a dental visit in the last 12 months?: Yes Did you have a dental problem in the last 6 months where you did not have access to dental care?: No Was dental information given to patient?: Patient has dentist HPI HPI Comments History of Present Illness Details 29-year-old male presents for an extended physical exam. Acute issue(s) - He notes that the past month, 3 times weekly, he has been experiencing SOB which wakes up up at night, requiring the use of his rescue inhaler frequently. He also uses his albuterol updraft. He is followed by [facility] pulmonology and his last follow up was 6 months ago. Past Medical History - Asthma Social History - Nonsmoker. Does not vape. Does not drink alcohol. Denies recreational drug use - Has been making healthy dietary choices. Active but does not exercise. Generally sleep well Health maintenance - Last eye exam was over 6 months ago at [facility]: normal - Last dental visit was early this year - Last tetanus vaccine was less than 10 years ago; record not available - Has not been vaccinated for the flu this season; declines vaccination [facility] Medical History Asthma Surgical History (Updated 01/22/25 @ 08:33 by Ailyn Lin MA) History of vasectomy History of appendectomy Family History (Updated 01/22/25 @ 08:35 by Ailyn Lin MA) Father Asthma Mother Asthma Maternal Grandmother Diabetes Clotting disorder Social History Household Members: Family Housing: House Alcohol intake: never Patient Tobacco Use Status: Never used Tobacco e-Cigarette/Vaping Use: Never Used Second Hand Smoke Exposure: No service: No Current occupational status: employed 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 1. Little interest or pleasure in doing things: not at all 2. Feeling down, depressed, or hopeless: not at all 3. Trouble falling or staying asleep, or sleeping too much: several days 4. Feeling tired or having little energy: not at all 5. Poor appetite or overeating: not at all 6. Feeling bad about yourself - or that you are a failure or have let yourself or your family down: not at all 7. Trouble concentrating on things, such as reading the newspaper or watching television: not at all 8. Moving or speaking so slowly that other people could have noticed. Or the opposite - being so fidgety or restless that you have been moving around a lot more than usual: not at all 9. Thoughts that you would be better off or of hurting yourself in some way: not at all Total score: 1 Depression Screening Interpretation: Negative Depression Screening Done: Yes 79085 - PHQ-9 Billing: Yes Source: Developed by Drs. Arnel Edward, Ana Cristina Landrum, iMl Hastings and colleagues, with an educational alberto from [employer]. Thrive Questionnaire Date Thrive assessed: 01/22/25 I am a: Patient What is your living situation today?: I have a steady place to live Within the past 12 months, did the food you bought not last and you didn't have the money to get more?: Never true Within the past 12 months, did you worry whether your food would run out before you got money to buy more?: Never true Do you have trouble paying for medicines?: No Do you have trouble getting transportation to medical appointments?: No Do you have trouble paying your heating and electricity bill?: No Do you have trouble taking care of your child, family member or friend?: No Do you have trouble with day-to-day activities such as bathing, preparing meals, shopping, managing finances, etc.?: No Are you currently unemployed and looking for a job?: No Are you interested in more education?: No Please select the resources that you would like help with: None Currently or been in a relationship where the following occur: I choose not to answer THRIVE Score: 0 AUDIT C Alcohol Use Questionnaire (AUDIT-C) 1. How often do you have a drink containing alcohol?: Never Total Score: 0 Score Reviewed/Action Taken: Yes DANIEL-7 AMB Questionnaire DANIEL-7 Date DANIEL - 7 assessed: 01/22/25 Feeling nervous, anxious, or on edge: 0 = Not at all Not being able to stop or control worryin = Not at all Worrying too much about different things: 0 = Not at all Trouble relaxin = Not at all Being so restless that it is hard to sit still: 0 = Not at all Becoming easily annoyed or irritable: 0 = Not at all Feeling afraid as if something awful might happen: 0 = Not at all Total DANIEL-7 score (0-4 normal; 5-9 mild; 10-14 moderate; 15-21 severe): 0 Source: Developed by Drs. Arnel Edward, Ana Cristina Landrum, Mil Hastings and colleagues, with an educational alberto from [employer]. DANIEL-7 Assessment Billing DANIEL-7 Assessment Tool: DANIEL-7 Assessment 61289 ACT Questionnaire In the past 4 weeks, how much of the time did your asthma keep you from getting as much done at work, school or at home?: Some of the time During the past 4 weeks, how often have you had shortness of breath?: More than once a day During the past 4 weeks, how often did your asthma symptoms wake you up at night or earlier than usual in the morning?: 2-3 nights a week During the past 4 weeks, how often have you had to use your rescue inhaler or nebulizer medication?: More than 3 times per day How would you rate your asthma control during the past 4 weeks?: Somewhat controlled ACT Interpretation: Positive Score: 10 Review of Systems Const Details: Denies chills, Denies fatigue, Denies fever(s), Denies headache(s) and Denies weakness HEENT Denies change in vision, Denies dizziness, Denies headache(s), Denies hearing loss, Denies nasal congestion, Denies sinus pain, Denies sinus pressure and Denies sore throat Card Denies chest pain, Denies lightheadedness, Denies dyspnea and Denies other (palpitations) Resp Denies cough, Denies dyspnea and Denies wheezing GI Denies abdominal pain, Denies melena, Denies hematochezia, Denies change in bowel habits, Denies dyspepsia and Denies nausea Denies hematuria and Denies dysuria Musc Denies abnormal gait, Denies myalgias, Denies arthralgias, Denies numbness and Denies tingling Skin/Breast Denies rash, Denies unusual bruising and Denies wounds Neuro Denies abnormal gait, Denies dizziness, Denies headache(s), Denies memory loss, Denies numbness, Denies Sensory deficit (Neuro), Denies tingling and Denies weakness Psych Denies anxiety, Denies depression and Denies memory loss Endo Denies cold intolerance, Denies fatigue, Denies heat intolerance, Denies polydipsia and Denies polyuria [place]/Lymph Denies easy bleeding and Denies easy bruising Aller/Immun Denies wheezing Physical exam (Primary Care) Vital Signs: Last Vital Signs Temp 97.4 F 01/22/25 08:17 Pulse 76 01/22/25 08:17 Resp 16 01/22/25 08:17 BP 114/72 01/22/25 08:17 Pulse Ox 97 01/22/25 08:17 Oxygen Delivery Method Room Air 01/22/25 08:17 BMI result Body Mass Index 24.8 Tobacco/Smoking Status: Tobacco use Status Tobacco use date assessed 01/22/25 01/22/25 08:19 Patient Tobacco Use Status Never used Tobacco 01/22/25 08:15 e-Cigarette/Vaping Use Never Used 01/22/25 08:15 PHQ-9: PHQ-9 Score PHQ-9: Total score 1 01/22/25 08:35 Depression Screening Interpretation: Negative Thrive Assessment: Date of Thrive Assessment Date Thrive assessed 01/22/25 01/22/25 08:15 Currently or been in a relationship where the following occur: I choose not to answer Const Other: General: no acute distress, well developed, alert and awake Nutritional Appearance: well nourished Orientation/consciousness: patient oriented x3 [facility] Head: Yes normocephalic and Yes atraumatic Ears: hearing grossly normal bilaterally and TM's normal bilaterally General nose exam: Normal external nose present and Normal nares present Mouth: Normal oral and palatal mucosa present and moist mucous membranes Teeth and gingiva: dentition normal Throat: Yes oropharynx normal Eyes Pupils: Equal, round and reactive pupils present and Pupil accommodation reflex normal EOM: EOMs intact bilaterally Neck Neck: Yes normal visual inspection, Yes no lymphadenopathy and Yes trachea midline Thyroid: Thyroid normal Carotids: no bruits Lymphatic: no lymphadenopathy noted Chest Chest palpation & inspection: normal inspection of the chest Resp Effort & Inspection: normal respiratory effort Auscultation: clear to auscultation bilaterally Cardio Rate: regular rate Rhythm: regular rhythm Heart sounds: S1 normal heart sound present, S2 normal heart sound present, no gallops, no murmurs and no rubs Bruits: no abdominal aortic bruits and no carotid bruits GI Palpation (GI): No Abdominal aortic bruit present, Soft to palpation, nontender, No hepatosplenomegaly present and No Rebound tenderness present Auscultation: normal bowel sounds General: Yes no CVA tenderness Back/Spine/Pelvis Back: no CVA tenderness Cervical Spine: cervical ROM normal and No Cervical spine tenderness Thoracic/Lumbar Spine: thoraco-lumbar ROM normal, No pain with thoraco-lumbar ROM, No thoracic spinal tenderness and No lumbar spinal tenderness Skin General: warm and dry. Normal skin color. Normal skin turgor Lesions: no lesions Rashes: no rashes Trauma: no lacerations or abrasions Wounds: no wounds Nails: normal Neuro General: patient oriented x3, gait normal and CN's II-XI intact bilaterally Cranial nerves: Yes Equal, round and reactive pupils present Cognition (Neuro): normal cognition Gait exam (Neuro): Normal gait present Motor exam (neuro): 5/5 motor strength present throughout Sensory Exam: No Sensory deficit (Neuro) Deep tendon reflexes (DTR's): Right patellar reflex intensity grade: 2+ and Left patellar reflex intensity grade: 2+ Extrem General: Yes normal to inspection, No edema and No calf tenderness Psych Appearance: grossly normal Affect: normal affect Attitude: cooperative Thought process: Normal thought process present Coding Level of Care Code Est Pt Prev Care 18-39y(62255) Diagnoses Normal physical examination, routine Z00.00 Moderate persistent asthma without complication J45.40 Asthma complication type: uncomplicated Asthma persistence: persistent Asthma severity: moderate Laboratory tests ordered as part of a complete physical exam (CPE) Z00.00 Additional Codes Asthma Control Questionnaire - ACT Interpretation: Positive ([id number]) DANIEL-7 Assessment Billing - DANIEL-7 Assessment Tool: DANIEL-7 Assessment 60282 ([id number]) PHQ-9 - 77938 - PHQ-9 Billing: Yes ([id number]) Assessment & Plan Assessment & Plan (1) Normal physical examination, routine: Code(s): Z00.00 - Encounter for general adult medical examination without abnormal findings Category: Medical Plan: No significant functional limitation noted. Healthy diet and routine exercise encouraged. Performed lab work and follow-up for telehealth visit in 2-3 weeks. Return sooner with symptoms or concerns. Verbalized understanding and agreed with the plan. (2) Asthma: Code(s): J45.909 - Unspecified asthma, uncomplicated Category: Medical Qualifiers: Asthma complication type: uncomplicated Asthma persistence: persistent Asthma severity: moderate Qualified Code(s): J45.40 - Moderate persistent asthma, uncomplicated Plan: ACT score is 10, poorly control asthma. Continue current treatment regimen. Advised to call and schedule an appointment with pulmonology. Return with worsening or new symptoms. Verbalized understanding and agreed with plan. (3) Laboratory tests ordered as part of a complete physical exam (CPE): Code(s): Z00.00 - Encounter for general adult medical examination without abnormal findings Category: Medical Plan: Fasting labs ordered as part of a complete physical exam. Advised to fast for at least 10 hours before getting labs drawn. May drink water Verbalized understanding and agreed with treatment plan. Orders: Orders Complete Blood Count Auto Diff Today Z00.00 - Encounter for general adult medical examination without abnormal findings Comprehensive [place]. Panel Fast Today Z00.00 - Encounter for general adult medical examination without abnormal findings TSH reflex Free T4 Today Z00.00 - Encounter for general adult medical examination without abnormal findings UA CC w/rflx Micro + Cult Today Z00.00 - Encounter for general adult medical examination without abnormal findings Lipid Panel Today Z00.00 - Encounter for general adult medical examination without abnormal findings Vitamin D 25-OH Total Today Z00.00 - Encounter for general adult medical examination without abnormal findings
[2025-01-22 08:17] VITALS: BP 114/72; PULSE 76; RESP 16; TEMP 36.3; O2SAT 97; BMI 24.8
== END 2025-01-22 08:36 | disposition home or self-care (01) ==
LOC: HO.HMCFM 08:06
PROVIDERS: PCP Nurse Practitioner Family; Visit Provider Nurse Practitioner Family
DX: Z00.00 Encounter for general adult medical examination without abnormal findings (principal); J45.40 Moderate persistent asthma, uncomplicated

== ENCOUNTER → 2025-01-22 08:06 | Outpatient (BNVA) | payer OTHER, SELFPAY | PROVIDERS: PCP Nurse Practitioner Family; Visit Provider Nurse Practitioner Family | DX: Z00.00 Encounter for general adult medical examination without abnormal findings (principal); J45.40 Moderate persistent asthma, uncomplicated | CPT/HCPCS: 96127; 96160 ==

== ENCOUNTER 2025-01-28 19:53 | Emergency (ER) | payer OTHER, SELFPAY ==
--- NOTE | ~2025-01-28 | XR_ITS ---
CLINICAL HISTORY: pneumonia? 1 view chest x-ray Comparison: None Findings: Relative lucency in the right base may be air trapping versus artifact from overlying soft tissues. No consolidation or effusion. No pneumothorax. Normal size heart. No acute fracture. IMPRESSION: Relative lucency in the right base may be air trapping versus artifact from overlying soft tissues. No consolidation. This document has been electronically signed by: Liliana Mathew MD on 01/28/2025 20:33:52
--- NOTE | 2025-01-28 19:55 | ECG_ITS ---
Test Reason : cp Blood Pressure : */* mmHG Vent. Rate : 90 BPM Atrial Rate : 90 BPM P-R Int : 142 ms QRS Dur : 94 ms QT Int : 336 ms P-R-T Axes : 66 71 58 degrees QTcB Int : 411 ms Normal sinus rhythm with sinus arrhythmia Normal ECG When compared with ECG of 21-Jun-2021 18:24, No significant change was found Referred By: Finn Chambers Electronically Signed By: Waylon Mendes
[2025-01-28 20:02] VITALS: BP 133/86; PULSE 99; RESP 24; TEMP 36.8; O2SAT 92; BMI 24.1
--- NOTE | 2025-01-28 20:07 | ED.GENADULT ---
HPI - General Adult General Chief complaint: Dyspnea Stated complaint: asthma,sob,chest pain Time Seen by Provider: 01/28/25 20:44 History of Present Illness ED Provider: Nahum Meyer MD HPI narrative: 29-year-old male history of mild moderate asthma with albuterol only at home. No prior intubations or admissions to the hospital for this. Cough shortness of breath few days. Related Data Previous Rx's ?Medication ?Instructions ?Recorded albuterol sulfate 2.5 mg/3 mL 2.5 mg (3 mL) inhalation Q4-6H PRN 03/14/23 (0.083 %) solution for nebulization shortness of breath or wheezing #90 mL albuterol sulfate 90 mcg/actuation 2 puff inhalation Q4-6H PRN 03/14/23 aerosol inhaler shortness of breath or wheezing #8.5 grams acetaminophen 300 mg-codeine 30 mg 1 tab PO Q8H 3 days #9 tabs 01/24/24 tablet diazepam 2 mg tablet 2 mg PO BID PRN anxiety 1 day #2 01/24/24 tabs albuterol sulfate 90 mcg/actuation 1 inh inhalation QID PRN shortness 01/28/25 aerosol inhaler of breath or wheezing #8.5 grams fluticasone furoate 200 1 inh inhalation DAILY 30 days #60 01/28/25 mcg-vilanterol 25 mcg/dose ea inhalation powder (Breo Ellipta) fluticasone furoate 27.5 2 spray intranasal DAILY #18.2 mL 01/28/25 mcg/actuation nasal spray,suspension potassium chloride 20 mEq oral 20 meq PO BID #30 ea 01/28/25 packet potassium chloride 20 mEq oral 20 meq PO DAILY 5 days #5 ea 01/28/25 packet prednisone 50 mg tablet 50 mg PO DAILY 5 days #5 tabs 01/28/25 Allergies Allergy/AdvReac Type Severity Reaction Status Date / Time amoxicillin [AMOXICILLIN] Allergy Unknown HIVES Verified 01/28/25 20:03 [facility] Past Medical History Medical History (Updated 01/29/25 @ 00:00 by Velma Hernandez) Asthma Surgical History (Updated 01/22/25 @ 08:33 by Ailyn Lin MA) History of vasectomy History of appendectomy Family History Family History (Updated 01/22/25 @ 08:35 by Ailyn Lin MA) Father Asthma Mother Asthma Maternal Grandmother Diabetes Clotting disorder Social History Social History Household Members: Family Housing: House Alcohol intake: never Patient Tobacco Use Status: Never used Tobacco Smoked in Last 30 Days: No e-Cigarette/Vaping Use: Never Used Second Hand Smoke Exposure: No Use of substances other than those prescribed or required for medical reasons: No Advance Directives: No Advance Directives Information Provided: No Do you have a plan to hurt others: No Plan service: No Current occupational status: employed 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 Head: Atraumatic Eyes: Anicteric, Normal conjunctiva. ENT: Moist mucosa, no pallor. ? Neck: Supple. Respiratory: No respiratory distress. Mild expiratory wheeze. Occasional coughing not ill or toxic Cardiovascular: Regular rate and rhythm. No murmurs or rub. Well perfused periphery, warm extremities. No edema. ? Abdominal: Soft, no objective distension. No palpable masses or obvious organomegaly. No focal tenderness, no guarding, no rebound tenderness or other peritoneal findings. : No flank tenderness. Neuro: Alert. Gross movement of all extremities intact. ? Vital signs: See flowsheet Course Course Course Narrative: RME: 29-year-old male with history of asthma presents to ED for shortness of breath chest pain and chest tightness for the past 3 days. Patient states no relief with albuterol inhaler. O2 saturation room air 90-94%. Lung significant wheezing. Patient to be brought back to the ED for treatment. ED bronchodilator labs ordered. Medications Administered Discontinued Medications Generic Name Dose Route Start Last Admin Trade Name Freq PRN Reason Stop Dose Admin Albuterol Sulfate 5 mg/ 0 mg 01/28/25 20:20 01/28/25 20:23 Albuterol/Ipratropium 3 ml INHALE 01/28/25 20:21 1 each ONCE ONE Administration Magnesium Sulfate 2 gm in 50 mls @ 25 mls/hr 01/28/25 20:16 01/28/25 22:42 Magnesium Sulfate/H2o IV 01/28/25 22:15 Infused ONCE ONE Infusion Potassium Chloride/Sodium Chloride 20 meq in 1,000 mls @ 500 mls/hr 01/28/25 21:45 01/28/25 23:24 Kcl 20 Meq In 0.45% Sod IVCONT Not Given .Q2H IRENE Methylprednisolone Sodium Succinate 125 mg 01/28/25 20:16 01/28/25 20:42 Methylprednisolone Sod Succ 125 Mg/2 Ml Vial IVPUSH 01/28/25 20:17 125 mg ONCE ONE Administration Potassium Chloride 40 meq 01/28/25 21:32 01/28/25 22:04 Potassium Chloride Er 20 Meq Tab.Er.Prt PO 01/28/25 21:33 40 meq ONCE ONE Administration Medical Decision Making Medical Decision Making [facility] Narrative: 29-year-old male with asthma likely moderate exacerbation. Suspect concomitant upper respiratory viral infection. No distress. No indication for BiPAP or other additional treatments are we did consider escalation to admission but patient had improvement of his symptoms after nebs steroids. Lab Data [facility] Lab Attestation statement: I reviewed the patient's lab results. 01/28/25 20:38 01/28/25 22:11 Labs: Lab Results 01/28/25 01/28/25 Range/Units 20:38 22:11 WBC 7.7 (4.8-10.8) X10*3/uL RBC 4.60 (4.60-5.80) X10*6/uL Hgb 13.8 L (14.0-18.0) g/dl Hct 39.6 L (42.0-52.0) % MCV 86.1 (80.0-98.0) fL MCH 30.0 (27.0-33.0) pg MCHC 34.8 (31.0-36.0) g/dl RDW 12.1 (11.0-16.0) % Plt Count 255 (160-400) X10*3/uL MPV 9.5 (9.4-12.4) fL Immature Gran % (Auto) 0.1 (0.0-0.4) % Neut % (Auto) 46.0 (45-73) % Lymph % (Auto) 30.9 (20-40) % [place] % (Auto) 9.3 (2-11) % Eos % (Auto) 12.8 H (0-4) % Baso % (Auto) 0.9 (0-2) % Lymph # (Auto) 2.4 (1.2-4.9) X10*3/uL [place] # (Auto) 0.7 (0.1-1.2) X10*3/uL Eos # (Auto) 1.0 H (0.0-0.4) X10*3/uL Baso # (Auto) 0.1 (0.0-0.2) X10*3/uL Abs Immat Gran (auto) 0.01 (0.00-0.03) X10*3/uL Absolute Neuts (auto) 3.6 (2.0-8.3) x10*3/uL Absolute Nucleated RBC 0.000 (0.0-0.012) X10*3/uL Nucleated RBC % (auto) 0.0 (0.0-0.2) /100WBC Sodium 141 (135-145) mmol/L Potassium 2.8 L* 3.1 L (3.3-5.1) mmol/L Chloride 105 (96-108) mmol/L Carbon Dioxide 28 (22-29) mmol/L Anion Gap 11 L (12-20) BUN 10 (9-16) mg/dL Creatinine 0.77 (0.5-1.4) mg/dL Estim Creat Clear Calc 138.1 Estimated GFR > 60 Random Glucose 100 (60-115) mg/dL Calcium 9.3 (8.4-10.2) mg/dL Total Bilirubin 1.2 H (0.0-1.0) mg/dL AST 22 (5-37) U/L ALT 22 (0-40) U/L Alkaline Phosphatase 82 (39-117) U/L Troponin I High Sens < 2.7 (<3.5-35.0) ng/L B-Natriuretic Peptide < 10 (<100) pg/mL Total Protein 7.2 (6.5-8.0) g/dL Albumin 4.2 (3.5-5.0) g/dL Influenza Type A (PCR) NEGATIVE (Negative) Influenza Type B (PCR) NEGATIVE (Negative) RSV RNA Qual (PCR) NEGATIVE (Negative) SARS-CoV-2 RNA (RT-PCR) NEGATIVE (Negative) Discharge Plan Discharge Clinical Impression: Asthma exacerbation, Acute hypokalemia Patient Disposition: Home, Self-Care Instructions: Asthma (ED) Additional Instructions: DISCHARGE DIAGNOSES: Likely exacerbation of asthma possibly from pollen and other seasonal allergies HISTORY OF PRESENTATION: Cough nasal discharge and congestion several days and wheezing EMERGENCY DEPARTMENT COURSE,TESTS, TREATMENTS: While in the ED today you were given intravenous steroids, oral potassium supplementation and albuterol inhaler treatments. He had an x-ray of your chest and lab work. Her potassium level was low, 2.8 which is very low but maybe secondary to your use of albuterol which can lower this. We gave you 40 mEq supplementation tablet of potassium and rechecked your value. Your recheck was 3.1 this is acceptable for oral tablet repletion as an outpatient which will prescribe you DISCHARGE MEDICATIONS: We have prescribed you steroids, steroid nasal spray, albuterol and you told me you have enough of the albuterol solution for home. Oral tablets of potassium see prescription FOLLOW-UP: ?Call your primary or general physician soon as possible to discuss your symptoms, your ED visit and to discuss follow up plans Call your lung doctor and/or primary doctor soon as possible can follow up INSTRUCTIONS ?& RETURN PRECAUTIONS: If any symptoms change first call your primary physician, if it is after-hours your primary doctors office should have a provider hospital account liaison you can speak with. If the symptoms are severe or very concerning to you then call 911 or return to the ED. Nahum Meyer MD Emergency Physician [facility] Prescriptions: New prednisone 50 mg tablet 50 mg PO DAILY 5 Days Qty: 5 0RF fluticasone furoate 27.5 mcg/actuation spray,suspension 2 spray intranasal DAILY Qty: 18.2 0RF Rx Instructions: into each nostril albuterol sulfate 90 mcg/actuation HFA aerosol inhaler 1 inh inhalation QID PRN (Reason: shortness of breath or wheezing) Qty: 8.5 0RF potassium chloride 20 mEq packet 20 meq PO BID Qty: 30 0RF potassium chloride 20 mEq packet 20 meq PO DAILY 5 Days Qty: 5 0RF No Action fluticasone furoate-vilanterol [Breo Ellipta] 200-25 mcg/dose blister with device 1 inh inhalation DAILY 30 Days Qty: 60 3RF albuterol sulfate 90 mcg/actuation HFA aerosol inhaler 2 puff inhalation Q4-6H PRN (Reason: shortness of breath or wheezing) Qty: 8.5 3RF albuterol sulfate 2.5 mg /3 mL (0.083 %) solution for nebulization 2.5 mg inhalation Q4-6H PRN (Reason: shortness of breath or wheezing) Qty: 90 3RF diazepam 2 mg tablet 2 mg PO BID PRN (Reason: anxiety) 1 Days Qty: 2 0RF Rx Instructions: Take medication after arrival at office acetaminophen-codeine 300-30 mg tablet 1 tab PO Q8H 3 Days Qty: 9 0RF Stand Alone Forms: Work/School Release Interventions: ED Discharge Assessment Last Done: 01/28/25 23:00 Discharge Date/Time: 01/28/25 23:24 Print Language: Yakut
[2025-01-28] MEDS: Albuterol Sulfate 5 MG, Albuterol/Iprat 2.5/0.5MG 3 ML 3 ML INHALE (20:23)
[2025-01-28 20:26] VITALS: PULSE 92; RESP 18; O2SAT 95
[2025-01-28] MEDS: Magnesium Sulfate/H2O 2 GM/50 ML PIGGYBACK IV (20:42)
[2025-01-28] MEDS: methylPREDNISolone Sod Succ 125 MG/2 ML VIAL IVPUSH (20:42)
[2025-01-28 20:45] LABS: Basophils Absolute Auto 0.1 X10*3/uL (0.0-0.2); Basophils Percent Auto 0.9 % (0-2); Eosinophils Percent Auto 12.8 % (0-4); Hematocrit 39.6 % (42.0-52.0); Hemoglobin 13.8 g/dl (14.0-18.0); Imm Gran Abs Auto 0.01 X10*3/uL (0.00-0.03); Imm Gran Pct Auto 0.1 % (0.0-0.4); Lymphocytes Absolute Auto 2.4 X10*3/uL (1.2-4.9); Lymphocytes Percent Auto 30.9 % (20-40); MANUAL DIFF FLAG NO; Mean Corpuscular HGB Conc 34.8 g/dl (31.0-36.0); Mean Corpuscular Volume 86.1 fL (80.0-98.0); Mean Platelet Volume 9.5 fL (9.4-12.4); Monocytes Absolute Auto 0.7 X10*3/uL (0.1-1.2); Monocytes Percent Auto 9.3 % (2-11); Neutrophils Absolute Auto 3.6 x10*3/uL (2.0-8.3); Platelet Count 255 X10*3/uL (160-400); Red Cell Distribution Width 12.1 % (11.0-16.0); White Blood Count 7.7 X10*3/uL (4.8-10.8)
[2025-01-28 21:05] LABS: B Type Natriuretic Peptide < 10 pg/mL (<100)
[2025-01-28 21:07] LABS: Troponin-I High Sensitivity < 2.7 ng/L (<3.5-35.0)
[2025-01-28 21:10] LABS: Alanine Aminotransferase 22 U/L (0-40); Albumin Level 4.2 g/dL (3.5-5.0); Alkaline Phosphatase 82 U/L (39-117); Anion Gap 11 (12-20); Aspartate Amino Transferase 22 U/L (5-37); Bilirubin Total 1.2 mg/dL (0.0-1.0); Blood Urea Nitrogen 10 mg/dL (9-16); Calcium 9.3 mg/dL (8.4-10.2); Carbon Dioxide 28 mmol/L (22-29); Chloride 105 mmol/L (96-108); Creatinine Clr Calc Pharmacy 138.1; Estimated Glomerular Filt Rate > 60; Glucose Random 100 mg/dL (60-115); Sodium 141 mmol/L (135-145); Total Protein 7.2 g/dL (6.5-8.0)
[2025-01-28 21:21] LABS: Influenza A PCR NEGATIVE (Negative); Influenza B PCR NEGATIVE (Negative); Resp Syncy Virus RNA Qual PCR NEGATIVE (Negative); SARS COV2 PCR INHOUSE NEGATIVE (Negative)
[2025-01-28 21:32] LABS: Potassium 2.8 mmol/L (3.3-5.1)
--- NOTE | 2025-01-28 21:57 | ED_ITS ---
HPI - SOB/Dyspnea General Chief Complaint: Dyspnea Stated Complaint: asthma,sob,chest pain Time Seen by Provider: 01/28/25 20:44 History of Present Illness ED Provider: Nahum Meyer MD HPI Narrative: 29-year-old male with history of asthma on albuterol p.r.n. previously on Breo. He has had hospitalizations no intubations or ICU admissions for asthma in the past. No chest pain he said for about 3-4 days and worsening wheeze, cough, nasal congestion he is attributing this to seasonal allergy. No chest pain abdominal pain nausea vomiting fever Related Data Previous Rx's ?Medication ?Instructions ?Recorded albuterol sulfate 2.5 mg/3 mL 2.5 mg (3 mL) inhalation Q4-6H PRN 03/14/23 (0.083 %) solution for nebulization shortness of breath or wheezing #90 mL albuterol sulfate 90 mcg/actuation 2 puff inhalation Q4-6H PRN 03/14/23 aerosol inhaler shortness of breath or wheezing #8.5 grams acetaminophen 300 mg-codeine 30 mg 1 tab PO Q8H 3 days #9 tabs 01/24/24 tablet diazepam 2 mg tablet 2 mg PO BID PRN anxiety 1 day #2 01/24/24 tabs albuterol sulfate 90 mcg/actuation 1 inh inhalation QID PRN shortness 01/28/25 aerosol inhaler of breath or wheezing #8.5 grams fluticasone furoate 200 1 inh inhalation DAILY 30 days #60 01/28/25 mcg-vilanterol 25 mcg/dose ea inhalation powder (Breo Ellipta) fluticasone furoate 27.5 2 spray intranasal DAILY #18.2 mL 01/28/25 mcg/actuation nasal spray,suspension potassium chloride 20 mEq oral 20 meq PO BID #30 ea 01/28/25 packet potassium chloride 20 mEq oral 20 meq PO DAILY 5 days #5 ea 01/28/25 packet prednisone 50 mg tablet 50 mg PO DAILY 5 days #5 tabs 01/28/25 Allergies Allergy/AdvReac Type Severity Reaction Status Date / Time amoxicillin [AMOXICILLIN] Allergy Unknown HIVES Verified 01/28/25 20:03 PMFSH Past Medical History Medical History (Updated 01/29/25 @ 00:00 by Velma Hernandez) Asthma Surgical History (Updated 01/22/25 @ 08:33 by Ailyn Lin MA) History of vasectomy History of appendectomy Family History Family History (Updated 01/22/25 @ 08:35 by Ailyn Lin MA) Father Asthma Mother Asthma Maternal Grandmother Diabetes Clotting disorder Social History Social History Household Members: Family Housing: House Alcohol intake: never Patient Tobacco Use Status: Never used Tobacco Smoked in Last 30 Days: No e-Cigarette/Vaping Use: Never Used Second Hand Smoke Exposure: No Use of substances other than those prescribed or required for medical reasons: No Advance Directives: No Advance Directives Information Provided: No Do you have a plan to hurt others: No Plan service: No Current occupational status: employed 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 Head: Atraumatic Eyes: Anicteric, Normal conjunctiva. ENT: Moist mucosa, no pallor. ? Neck: Supple. Respiratory: Breathing comfortably, No distress.Clear to auscultation bilaterally, symmetric chest expansion, mild expiratory wheeze only. Respiratory rate approximately 22. Saturation 95% on room air when I am evaluating the patient Cardiovascular: Regular rate and rhythm. No murmurs or rub. Well perfused periphery, warm extremities. No edema. ? Abdominal: Soft, no objective distension. No palpable masses or obvious organomegaly. No focal tenderness, no guarding, no rebound tenderness or other peritoneal findings. : No flank tenderness. Neuro: Alert. Gross movement of all extremities intact. ? Vital signs: See flowsheet Medications Administered Discontinued Medications Generic Name Dose Route Start Last Admin Trade Name Freq PRN Reason Stop Dose Admin Albuterol Sulfate 5 mg/ 0 mg 01/28/25 20:20 01/28/25 20:23 Albuterol/Ipratropium 3 ml INHALE 01/28/25 20:21 1 each ONCE ONE Administration Magnesium Sulfate 2 gm in 50 mls @ 25 mls/hr 01/28/25 20:16 01/28/25 22:42 Magnesium Sulfate/H2o IV 01/28/25 22:15 Infused ONCE ONE Infusion Potassium Chloride/Sodium Chloride 20 meq in 1,000 mls @ 500 mls/hr 01/28/25 21:45 01/28/25 23:24 Kcl 20 Meq In 0.45% Sod IVCONT Not Given .Q2H IRENE Methylprednisolone Sodium Succinate 125 mg 01/28/25 20:16 01/28/25 20:42 Methylprednisolone Sod Succ 125 Mg/2 Ml Vial IVPUSH 01/28/25 20:17 125 mg ONCE ONE Administration Potassium Chloride 40 meq 01/28/25 21:32 01/28/25 22:04 Potassium Chloride Er 20 Meq Tab.Er.Prt PO 01/28/25 21:33 40 meq ONCE ONE Administration Medical Decision Making Medical Decision Making MDM Narrative: 29-year-old male with history of asthma with wheeze cough nasal congestion 3-4 days. Likely asthma exacerbation secondary to seasonal allergens given the high pollen concentration at this time. No focal infiltrate on chest x-ray. Steroids neb x1 with good clinical improvement. No hypoxia or respiratory distress. Differential Diagnosis Asthma exacerbation upper respiratory infection, allergic bronchitis Regarding hypokalemia, beta agonist induced hypokalemia, nutritional Lab Data MDM Lab Attestation statement: I reviewed the patient's lab results. Potassium 2.8 this may be from excessive albuterol use today I will repeat this. 01/28/25 20:38 01/28/25 22:11 Labs: Lab Results 01/28/25 01/28/25 Range/Units 20:38 22:11 WBC 7.7 (4.8-10.8) X10*3/uL RBC 4.60 (4.60-5.80) X10*6/uL Hgb 13.8 L (14.0-18.0) g/dl Hct 39.6 L (42.0-52.0) % MCV 86.1 (80.0-98.0) fL MCH 30.0 (27.0-33.0) pg MCHC 34.8 (31.0-36.0) g/dl RDW 12.1 (11.0-16.0) % Plt Count 255 (160-400) X10*3/uL MPV 9.5 (9.4-12.4) fL Immature Gran % (Auto) 0.1 (0.0-0.4) % Neut % (Auto) 46.0 (45-73) % Lymph % (Auto) 30.9 (20-40) % Gates % (Auto) 9.3 (2-11) % Eos % (Auto) 12.8 H (0-4) % Baso % (Auto) 0.9 (0-2) % Lymph # (Auto) 2.4 (1.2-4.9) X10*3/uL Gates # (Auto) 0.7 (0.1-1.2) X10*3/uL Eos # (Auto) 1.0 H (0.0-0.4) X10*3/uL Baso # (Auto) 0.1 (0.0-0.2) X10*3/uL Abs Immat Gran (auto) 0.01 (0.00-0.03) X10*3/uL Absolute Neuts (auto) 3.6 (2.0-8.3) x10*3/uL Absolute Nucleated RBC 0.000 (0.0-0.012) X10*3/uL Nucleated RBC % (auto) 0.0 (0.0-0.2) /100WBC Sodium 141 (135-145) mmol/L Potassium 2.8 L* 3.1 L (3.3-5.1) mmol/L Chloride 105 (96-108) mmol/L Carbon Dioxide 28 (22-29) mmol/L Anion Gap 11 L (12-20) BUN 10 (9-16) mg/dL Creatinine 0.77 (0.5-1.4) mg/dL Estim Creat Clear Calc 138.1 Estimated GFR > 60 Random Glucose 100 (60-115) mg/dL Calcium 9.3 (8.4-10.2) mg/dL Total Bilirubin 1.2 H (0.0-1.0) mg/dL AST 22 (5-37) U/L ALT 22 (0-40) U/L Alkaline Phosphatase 82 (39-117) U/L Troponin I High Sens < 2.7 (<3.5-35.0) ng/L B-Natriuretic Peptide < 10 (<100) pg/mL Total Protein 7.2 (6.5-8.0) g/dL Albumin 4.2 (3.5-5.0) g/dL Influenza Type A (PCR) NEGATIVE (Negative) Influenza Type B (PCR) NEGATIVE (Negative) RSV RNA Qual (PCR) NEGATIVE (Negative) SARS-CoV-2 RNA (RT-PCR) NEGATIVE (Negative) Independent Interpretation I performed an independent interpretation of an: Plain X-Ray (No infiltrate no pneumothorax) Discharge Plan Discharge Clinical Impression: Asthma exacerbation, Acute hypokalemia Patient Disposition: Home, Self-Care Instructions: Asthma (ED) Additional Instructions: _ DISCHARGE DIAGNOSES: Likely exacerbation of asthma possibly from pollen and other seasonal allergies HISTORY OF PRESENTATION: Cough nasal discharge and congestion several days and wheezing EMERGENCY DEPARTMENT COURSE,TESTS, TREATMENTS: While in the ED today you were given intravenous steroids, oral potassium supplementation and albuterol inhaler treatments. He had an x-ray of your chest and lab work. Her potassium level was low, 2.8 which is very low but maybe secondary to your use of albuterol which can lower this. We gave you 40 mEq supplementation tablet of potassium and rechecked your value. Your recheck was 3.1 this is acceptable for oral tablet repletion as an outpatient which will prescribe you DISCHARGE MEDICATIONS: We have prescribed you steroids, steroid nasal spray, albuterol and you told me you have enough of the albuterol solution for home. Oral tablets of potassium see prescription FOLLOW-UP: ?Call your primary or general physician soon as possible to discuss your symptoms, your ED visit and to discuss follow up plans Call your lung doctor and/or primary doctor soon as possible can follow up INSTRUCTIONS ?& RETURN PRECAUTIONS: If any symptoms change first call your primary physician, if it is after-hours your primary doctors office should have a provider animal control specialist you can speak with. If the symptoms are severe or very concerning to you then call 911 or return to the ED. Nahum Meyer MD Emergency Physician [facility] Prescriptions: New prednisone 50 mg tablet 50 mg PO DAILY 5 Days Qty: 5 0RF fluticasone furoate 27.5 mcg/actuation spray,suspension 2 spray intranasal DAILY Qty: 18.2 0RF Rx Instructions: into each nostril albuterol sulfate 90 mcg/actuation HFA aerosol inhaler 1 inh inhalation QID PRN (Reason: shortness of breath or wheezing) Qty: 8.5 0RF potassium chloride 20 mEq packet 20 meq PO BID Qty: 30 0RF potassium chloride 20 mEq packet 20 meq PO DAILY 5 Days Qty: 5 0RF No Action fluticasone furoate-vilanterol [Breo Ellipta] 200-25 mcg/dose blister with device 1 inh inhalation DAILY 30 Days Qty: 60 3RF albuterol sulfate 90 mcg/actuation HFA aerosol inhaler 2 puff inhalation Q4-6H PRN (Reason: shortness of breath or wheezing) Qty: 8.5 3RF albuterol sulfate 2.5 mg /3 mL (0.083 %) solution for nebulization 2.5 mg inhalation Q4-6H PRN (Reason: shortness of breath or wheezing) Qty: 90 3RF diazepam 2 mg tablet 2 mg PO BID PRN (Reason: anxiety) 1 Days Qty: 2 0RF Rx Instructions: Take medication after arrival at office acetaminophen-codeine 300-30 mg tablet 1 tab PO Q8H 3 Days Qty: 9 0RF Stand Alone Forms: Work/School Release Interventions: ED Discharge Assessment Last Done: 01/28/25 23:00 Discharge Date/Time: 01/28/25 23:24 Print Language: [place] African
[2025-01-28 22:04] VITALS: BP 127/65; PULSE 73; RESP 16; TEMP 36.8; O2SAT 94
[2025-01-28] MEDS: Potassium Chloride ER 20 MEQ TAB.ER.PRT 40 MEQ PO (22:04)
[2025-01-28 22:23] LABS: Potassium 3.1 mmol/L (3.3-5.1)
[2025-01-28 23:00] VITALS: BP 127/65; PULSE 85; RESP 16; TEMP 36.8; O2SAT 95
== END 2025-01-28 23:24 | disposition home or self-care (01) ==
PROVIDERS: Physician Assistant; Emergency Provider Emergency Medicine; PCP Nurse Practitioner Family
DX: J45.901 Unspecified asthma with (acute) exacerbation (principal); R06.02 Shortness of breath; R07.89 Other chest pain; J45.909 Unspecified asthma, uncomplicated; R05.9 Cough, unspecified; R09.81 Nasal congestion; Z03.818 Encounter for observation for suspected exposure to other biological agents ruled out; Z79.899 Other long term (current) drug therapy
CPT/HCPCS: 0241U; 36415; 71045; 80053; 83880; 84132; 84484; 85025; 93005; 94640; 96365; 96366; 96375; 99284; 99285; J2919; J3475

== ENCOUNTER → 2025-01-28 19:55 | Outpatient (BNV) | payer OTHER, SELFPAY | PROVIDERS: Emergency Provider Emergency Medicine; PCP Nurse Practitioner Family; Visit Provider Internal Medicine Cardiovascular Disease | DX: I49.9 Cardiac arrhythmia, unspecified (principal) | CPT/HCPCS: 93010 ==

== ENCOUNTER → 2025-01-28 20:05 | Outpatient (BNV) | payer OTHER, SELFPAY | PROVIDERS: Emergency Provider Emergency Medicine; PCP Nurse Practitioner Family; Visit Provider Radiology Diagnostic Radiology | DX: J45.901 Unspecified asthma with (acute) exacerbation (principal) | CPT/HCPCS: 71045 ==

== ENCOUNTER 2025-03-23 08:34 | Outpatient (AMB) | payer OTHER, SELFPAY ==
[2025-03-23 08:38] VITALS: BP 100/56; PULSE 75; O2SAT 97; BMI 25.3
--- NOTE | 2025-03-23 08:38 | MHC.OFFVIS ---
Vital Signs 03/23/25 08:38 Height 5 ft 8 in Weight 166 lb 7.184 oz BMI 25.3 BP 100/56 L Blood Pressure Location Lt brachial Position Sitting Pulse 75 Pulse Source Pulse Oximeter Pulse Oximetry (%) 97 Oxygen Delivery Method Room Air Intake Visit Reasons: asthma Oyster Grower Required: No Accompanied by: Self / Same As Patient Allergies amoxicillin (AMOXICILLIN) Allergy (Unknown, Verified 03/23/25 08:41) HIVES HPI Comments Details: The patient is a 29-year-old gentleman with a known history of lifelong asthma. He has been struggling a little bit more recently. Having sporadic episodes of chest tightness. Moderate severity. He only uses a rescue inhaler. The patient has been working regularly outside. Typically the cold air sometimes bothers his breathing. 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 The patient denies any allergy testing. Does not have any pets. Denies any exposure to mold. He has never had any allergy testing. Does have nasal congestion. Denies any nasal polyps. Denies any significant eczema. He does not smoke cigarettes although sometimes he does smoke marijuana. Denies any other recreational drugs. He did undergo pulmonary function studies recently and I did review that with him. Does appear to have a moderate fixed obstruction consistent with uncontrolled asthma although can not rule out COPD. Does have significant small airways disease. At this point will going to start the patient on a maintenance inhaler Breo. We did teach him use it. He did get a flu shot. Patient will undergo blood work to assess any potential trigger from allergies. When he returns will go ahead and swab him for alpha-1 antitrypsin genotype. 03/23/2025 the patient is here for pulmonary follow-up visit. The patient overall has been doing okay although he ran out of his Breo about 3 weeks ago. He has been suffering because his breathing has gotten worse. Especially with his heated humidity. He does respond very well to the Breo. While on the Breo he did not have to use his rescue inhaler. The patient did undergo pulmonary function studies he appears to be obstructive at baseline. Therefore, we did an alpha-1 testing today. The patient otherwise feeling well. Will go ahead and follow-up in a year's time. If the patient develops any worsening symptoms he can always call. We did talk about potentially escalating him up to [facility] specially if he does have any worsening symptoms. 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 Cognitive needs: No Hearing needs: No Vision needs: No Review of Systems Const Denies fever(s) Eyes Reports no additional complaints ENT Reports nasal congestion Card Denies chest pain Resp Reports cough and Reports wheezing GI Reports no additional complaints Musc Reports no additional complaints Skin/Breast Denies rash Neuro Reports no additional complaints Duane/Lymph Denies lymphadenopathy Aller/Immun Reports wheezing Physical Exam Vital Signs: Last Vital Signs Pulse 75 03/23/25 08:38 BP 100/56 L 03/23/25 08:38 Pulse Ox 97 03/23/25 08:38 Oxygen Delivery Method Room Air 03/23/25 08:38 BMI result Body Mass Index 25.3 Const General: comfortable HEENT Head: Yes normocephalic Neck Neck: Yes supple Chest Chest palpation & inspection: normal inspection of the chest Resp Effort & Inspection: normal respiratory effort and prolonged expiratory phase Auscultation: diminished lung sounds Cardio Heart sounds: S1 normal heart sound present and S2 normal heart sound present GI Palpation (GI): Soft to palpation Skin General skin exam: no rashes or lesions noted Extrem General: Yes no clubbing, cyanosis or edema Assessment & Plan Assessment & Plan (1) Asthma: Code(s): J45.909 - Unspecified asthma, uncomplicated Category: Medical Qualifiers: Asthma complication type: uncomplicated Asthma persistence: persistent Asthma severity: moderate Qualified Code(s): J45.40 - Moderate persistent asthma, uncomplicated (2) Allergy: Code(s): T78.40XA - Allergy, unspecified, initial encounter Category: Medical Qualifiers: Encounter type: initial encounter Qualified Code(s): T78.40XA - Allergy, unspecified, initial encounter Plan continue Breo 200mcg GERSON as needed alpha 1 testing F/U 12 months Medications: Changed From albuterol sulfate 90 mcg/actuation 1 inh inhalation QID PRN 8.5 grams 0RF shortness of breath or wheezing To albuterol sulfate 90 mcg/actuation 2 inhalations inhalation QID PRN 8.5 grams 12RF shortness of breath or wheezing Refilled fluticasone furoate-vilanterol 200-25 mcg/dose (Breo Ellipta) 1 inh inhalation DAILY 60 ea 12RF 30 days J45.909 - Unspecified asthma, uncomplicated Coding Level of Care Code Est Pt Level 4 (70886) Diagnoses Moderate persistent asthma without complication J45.40 Asthma complication type: uncomplicated Asthma persistence: persistent Asthma severity: moderate Allergy, initial encounter T78.40XA Encounter type: initial encounter Time Spent (min) 16
== END 2025-03-23 09:11 | disposition home or self-care (01) ==
PROVIDERS: PCP Nurse Practitioner Family; Visit Provider Hospitalist
DX: J45.40 Moderate persistent asthma, uncomplicated (principal); T78.40XA Allergy, unspecified, initial encounter
CPT/HCPCS: 99214